=== PATIENT | female | born 1990 | race Two or more races ===

== ENCOUNTER 2017-06-13 16:20 | Emergency (ER) | payer OTHER ==
[2017-06-13 16:44] VITALS: BP 122/58; PULSE 70; TEMP 97.5; BMI 32.9
[2017-06-13] MEDS ORDERED: IBUPROFEN 600 MG TABLET (FP) PO ONE ×2 (17:34→17:44)
[2017-06-13] MEDS ORDERED: CYCLOBENZAPRINE HCL 10 MG TABLET (FP) PO ONE (17:34)
[2017-06-13] MEDS ORDERED: CYCLOBENZAPRINE HCL 10 MG TABLET (FP) ONE (17:44)
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
== END 2017-06-13 17:53 | disposition home or self-care (01) ==
LOC: JERFT 16:20
DX: S20.219A Contusion of unspecified front wall of thorax, initial encounter (principal); V43.52XA Car driver injured in collision with other type car in traffic accident, initial encounter; Y92.414 Local residential or business street as the place of occurrence of the external cause; Y93.89 Activity, other specified; Y99.8 Other external cause status; R73.03 Prediabetes
CPT/HCPCS: 99281-25

== ENCOUNTER 2017-09-04 11:59 | Emergency (ER) | payer OTHER ==
[2017-09-04 12:06] VITALS: BP 125/67; PULSE 91; TEMP 98; BMI 32.9
--- NOTE | 2017-09-04 12:37 | PDOC ---
History of Present Illness - General Chief Complaint: Sore Throat Stated Complaint: SORE THROAT (10 WKS ) Time Seen by Provider: 09/04/17 12:30 History Source: Patient Exam Limitations: No Limitations - History of Present Illness Initial Comments: 09/04/17 12:44 Patient came for evaluation for worsened runny nose, moist cough, sore throat pain for the past 24 hours. Denies fever, denies purulent drainage from nose, denies any phlegm production with cough. is 10 weeks with uncomplicated and is uncertain as to what she can take to make herself feel better. received flu shot one week ago and feels may be related 09/04/17 12:45 Associated Symptoms: reports: denies symptoms, cough Past History - Travel Traveled outside of the country in the last 30 days: No Close contact w/someone who was outside of country & ill: No - Past Medical History Allergies/Adverse Reactions: Allergies Allergy/AdvReac Type Severity Reaction Status Date / Time No Known Drug Allergies Allergy Verified 06/13/17 16:44 acetaminophen [From Tylenol] AdvReac Verified 09/04/17 12:06 Home Medications: Ambulatory Orders No Home Medications 0 dose .ROUTE UTDICT 12/15/11 Cyclobenzaprine HCl [Flexeril -] 5 mg PO TID PRN #12 tablet 06/13/17 Ibuprofen [Motrin -] 600 mg PO TID PRN #21 tablet 06/13/17 Anemia: Yes Asthma: No Cancer: No Cardiac Disorders: Yes (heart murmur) CVA: No COPD: No CHF: No Dementia: No Diabetes: Yes ("pre") GI Disorders: No Disorders: No HTN: No Hypercholesterolemia: No Liver Disease: No Seizures: No Thyroid Disease: No - Surgical History Abdominal Surgery: No Appendectomy: No Cardiac Surgery: No Cholecystectomy: No Lung Surgery: No Neurologic Surgery: No Orthopedic Surgery: No - Suicide/Smoking/Psychosocial Hx Smoking History: Never smoked Have you smoked in the past 12 months: No Hx Alcohol Use: Yes (occasional) Drug/Substance Use Hx: No Substance Use Type: Alcohol Hx Substance Use Treatment: No Review of Systems - Review of Systems Able to Perform ROS?: Yes Is the patient limited Fijian proficient: Yes Constitutional: Yes: Symptoms Reported, See HPI, Loss of Appetite, Malaise. No : Chills, Fever HEENTM: Yes: Symptoms Reported, See HPI, Nose Congestion, Throat Pain Respiratory: Yes: Symptoms reported, See HPI, Cough. No: Wheezing : No: Symptoms Reported Musculoskeletal: No: Symptoms Reported Integumentary: No: Symptoms Reported All Other Systems: Reviewed and Negative *Physical Exam - Vital Signs Last Vital Signs Temp Pulse Resp BP Pulse Ox 98 F 91 H 18 125/67 99 09/04/17 12:03 09/04/17 12:03 09/04/17 12:03 09/04/17 12:03 09/04/17 12:03 - Physical Exam General Appearance: Yes: Nourished, Appropriately Dressed, Apparent Distress, Mild Distress HEENT: positive: BIENVENIDO (no exudate), TMs Normal (congested but landmarks easily visualized), Rhinorrhea (clear drainage), Sinus Tenderness. negative: Pharyngeal Erythema Neck: positive: Supple, Lymphadenopathy (R), Lymphadenopathy (L). negative: Tender Respiratory/Chest: positive: Lungs Clear, Normal Breath Sounds (course) Cardiovascular: positive: Regular Rhythm Gastrointestinal/Abdominal: positive: Soft. negative: Tender Extremity: positive: Normal Capillary Refill, Normal Inspection, Normal Range of Motion Integumentary: positive: Dry, Warm, Pale Neurologic: positive: appliquer zigzag II-XII NML intact, Fully Oriented, Alert, Normal Mood/ Affect, Normal Response, Motor Strength 5/5 *DC/Admit/Observation/Transfer Diagnosis at time of Disposition: URI, acute - Discharge Dispostion Disposition: HOME Condition at time of disposition: Stable Admit: No - Referrals Referrals: Saleem Zapata MD [Primary Care Provider] - - Patient Instructions Printed Discharge Instructions: DI for Viral Upper Respiratory Infection -- Adult Additional Instructions: Rest, drink lots of fluids: Teas, water, soups, Pedialyte Saltwater gargles Steamy showers/seem to face break up mucus Avoid contact with others until fevers and cough resolved Lots of handwashing and good hygiene Tylenol for fever and pain Followup with private physician in one to 2 days as needed Return to emergency department for worsened symptoms, fevers, dehydration - Post Discharge Activity Forms/Work/School Notes: Back to Work
== END 2017-09-04 12:47 | disposition home or self-care (01) ==
LOC: JERFT 11:59
DX: O99.89 Other specified diseases and conditions complicating pregnancy, childbirth and the puerperium (principal); J06.9 Acute upper respiratory infection, unspecified; B97.89 Other viral agents as the cause of diseases classified elsewhere; Z3A.10 10 weeks gestation of pregnancy; R73.03 Prediabetes
CPT/HCPCS: 99281-25

== ENCOUNTER 2018-02-07 13:05 | Emergency (ER) | payer OTHER ==
[2018-02-07] MEDS ORDERED: SODIUM CHLORIDE 1,000 ML IV STA (16:13)
[2018-02-07] MEDS ORDERED: METOCLOPRAMIDE HCL INJECTION 10 MG/2 ML VIAL IVPUSH ONE (16:13)
[2018-02-07] MEDS ORDERED: ACETAMINOPHEN 1000 MG/100 ML VIAL (NON FORMULARY) IVPB ONE (16:19)
--- NOTE | 2018-02-07 16:20 | PDOC ---
History of Present Illness - General Chief Complaint: Headache Stated Complaint: HEADACHE () Time Seen by Provider: 02/07/18 16:01 History Source: Patient Exam Limitations: No Limitations - History of Present Illness Initial Comments: 02/07/18 17:08 Patient is a 27-year-old female currently 35 weeks who presents to the emergency department today for worsening headache over the past 4 days. Patient states she usually gets headaches however they do not generally last this long. She states that the pain started on the right side of her head and became more intense gradually over the past 4 days. Denies nausea, vomiting, worsening headache with positional changes. She states she last took Tylenol on Wednesday. Denies fevers, neck pain, chest pain, shortness of breath, difficulty breathing , vomiting, vaginal bleeding or spotting, edema. Past History - Travel Traveled outside of the country in the last 30 days: No Close contact w/someone who was outside of country & ill: No - Past Medical History Allergies/Adverse Reactions: Allergies Allergy/AdvReac Type Severity Reaction Status Date / Time No Known Drug Allergies Allergy Verified 02/07/18 13:21 Home Medications: Ambulatory Orders NK [No Known Home Medication] 09/04/17 Anemia: Yes Asthma: No Cancer: No Cardiac Disorders: Yes (heart murmur) CVA: No COPD: No CHF: No Dementia: No Diabetes: Yes ("pre") GI Disorders: No Disorders: No HTN: No Hypercholesterolemia: No Liver Disease: No Seizures: No Thyroid Disease: No - Surgical History Abdominal Surgery: No Appendectomy: No Cardiac Surgery: No Cholecystectomy: No Lung Surgery: No Neurologic Surgery: No Orthopedic Surgery: No - Suicide/Smoking/Psychosocial Hx Smoking History: Former smoker Have you smoked in the past 12 months: No If you are a former smoker, when did you quit?: 10 years ago Information on smoking cessation initiated: No Hx Alcohol Use: Yes (occasional) Drug/Substance Use Hx: No Substance Use Type: Alcohol Hx Substance Use Treatment: No Review of Systems - Review of Systems Able to Perform ROS?: Yes Comments:: 02/07/18 16:19 CONSTITUTIONAL: Absent: fever, chills, diaphoresis, generalized weakness, malaise, loss of appetite HEENT: Absent: rhinorrhea, nasal congestion, throat pain, throat swelling, difficulty swallowing, mouth swelling, ear pain, eye pain, visual Changes CARDIOVASCULAR: Absent: chest pain, loss of consciousness, palpitations, irregular heart rate, peripheral edema RESPIRATORY: Absent: cough, shortness of breath, dyspnea with exertion, orthopnea, wheezing, stridor, hemoptysis GASTROINTESTINAL: Absent: abdominal pain, abdominal distension, nausea, vomiting, diarrhea, constipation, melena, hematochezia GENITOURINARY: Absent: dysuria, frequency, urgency, hesitancy, hematuria, flank pain, genital pain MUSCULOSKELETAL: Absent: myalgia, arthralgia, joint swelling SKIN: Absent: rash, itching, pallor HEMATOLOGIC/IMMUNOLOGIC: Absent: easy bleeding, easy bruising, lymphadenopathy, frequent infections ENDOCRINE: Absent: unexplained weight gain, unexplained weight loss, heat intolerance, cold intolerance NEUROLOGIC: Present: headache Absent: focal weakness or paresthesias, dizziness, unsteady gait, seizure, mental status changes, bladder or bowel incontinence PSYCHIATRIC: Absent: anxiety, depression, suicidal or homicidal ideation, hallucinations. Is the patient limited Armenian proficient: No *Physical Exam - Vital Signs Last Vital Signs Temp Pulse Resp BP Pulse Ox 98.7 F 84 18 132/57 L 99 02/07/18 13:21 02/07/18 13:21 02/07/18 13:21 02/07/18 13:21 02/07/18 13:21 - Physical Exam Comments: 02/07/18 16:20 GENERAL: Well developed, well nourished. Awake and alert. No acute distress. HEENT: Normocephalic, atraumatic. PERRLA, EOMI. No conjunctival pallor. Sclera are non- icteric. Moist mucous membranes. Oropharynx is clear. NECK: Supple. Full ROM. No JVD. Carotid pulses 2+ and symmetric, without bruits. No thyromegaly. No lymphadenopathy. CARDIOVASCULAR: Regular rate and rhythm. No murmurs, rubs, or gallops. Distal pulses are 2+ and symmetric. PULMONARY: No evidence of respiratory distress. Lungs clear to auscultation bilaterally. No wheezing, rales or rhonchi. ABDOMINAL: Soft. Non-tender. Non-distended. No rebound or guarding. No organomegaly. Normoactive bowel sounds. MUSCULOSKELETAL Normal range of motion at all joints. No bony deformities or tenderness. No CVA tenderness. EXTREMITIES: No cyanosis. No clubbing. No edema. No calf tenderness. SKIN: Warm and dry. Normal capillary refill. No rashes. No jaundice. NEUROLOGICAL: Alert, awake, appropriate. Cranial nerves 2-12 intact. No deficits to light touch and temperature in face, upper extremities and lower extremities. No motor deficits in the in face, upper extremities and lower extremities. Normoreflexic in the upper and lower extremities. Normal speech. Toes are down- going bilaterally. Gait is normal without ataxia. PSYCHIATRIC: Cooperative. Good eye contact. Appropriate mood and affect. Medical Decision Making - Medical Decision Making 02/07/18 19:09 Patient is a 27-year-old female currently 35 weeks who presents to the emergency department today for worsening headache over the past 4 days. -Neuro exam is normal at this time -Most likely her typical headaches -IV reglan and benadryl ordered -Labs ordered, CBC, CMP, Urine. -Labs delayed because patients stated she didn't want her labs until she finished eating -Sign out given to Tammy Heart. Pending labs and meds. Re-evaluate *DC/Admit/Observation/Transfer - Referrals Referrals: Shun Pate MD [Primary Care Provider] - - Patient Instructions - Post Discharge Activity
[2018-02-07] MEDS ORDERED: METOCLOPRAMIDE HCL INJECTION 10 MG/2 ML VIAL ONE (17:54)
--- NOTE | 2018-02-07 19:17 | PDOC ---
*Physical Exam - Vital Signs Last Vital Signs Temp Pulse Resp BP Pulse Ox 98.7 F 84 18 132/57 L 99 02/07/18 13:21 02/07/18 13:21 02/07/18 13:21 02/07/18 13:21 02/07/18 13:21 - Physical Exam General Appearance: Yes: Appropriately Dressed Respiratory/Chest: positive: Lungs Clear, Normal Breath Sounds Gastrointestinal/Abdominal: positive: Normal Bowel Sounds, Soft Extremity: positive: Normal Capillary Refill, Normal Inspection, Normal Range of Motion, Pedal Edema (b/l pitting) Integumentary: positive: Normal Color, Dry, Warm Neurologic: positive: Fully Oriented, Alert, Normal Mood/Affect ED Treatment Course - LABORATORY CBC & Chemistry Diagram: 02/07/18 19:20 02/07/18 16:13 Medical Decision Making - Medical Decision Making 02/07/18 19:55 27 year old female 35 weeks c/o headache. has b/l pedal edema. patient is now getting IVF. will r/o HELLP syndrome. labs pending. patient denies abdominal pain 02/07/18 20:51 Labs WNL. will d/c to L&D for monitoring. *DC/Admit/Observation/Transfer Diagnosis at time of Disposition: Head ache Qualifiers: Headache type: tension-type Headache chronicity pattern: acute headache Intractability: not intractable Qualified Code(s): G44.209 - Tension-type headache, unspecified, not intractable - Discharge Dispostion Disposition: HOME - Referrals Referrals: Shun Pate MD [Primary Care Provider] - Call tomorrow - Patient Instructions Printed Discharge Instructions: Tension Headache Additional Instructions: drink plenty of fluids Follow up with your external relations manager as soon as possible - Post Discharge Activity
[2018-02-07 19:28] LABS: BASO % 0.4 % (0-2.0); HEMATOCRIT 33.8 % (32.4-45.2); HEMOGLOBIN 11.2 GM/dL (10.7-15.3); LYMPH % 16.6 % (8-40); MEAN CELL VOLUME 81.7 fl (80-96); PLATELET COUNT 186 K/MM3 (134-434); RBC 4.14 M/mm3 (3.60-5.2); RDW 13.5 % (11.6-15.6); WHITE BLOOD COUNT 6.5 K/mm3 (4.0-10.0)
[2018-02-07 20:03] LABS: ALBUMIN 2.1 g/dl (3.4-5.0); ALK PHOS 199 U/L (45-117); ANION GAP 8 MMOL/L (8-16); BILIRUBIN,TOTAL 0.2 mg/dL (0.2-1); BLOOD UREA NITROGEN 11 mg/dL (7-18); CALCIUM 8.6 mg/dL (8.5-10.1); CHLORIDE 108 mmol/L (98-107); CO2 24 mmol/L (21-32); CREATININE 0.7 mg/dL (0.55-1.3); GLUCOSE,RANDOM 161 mg/dL (74-106); SGOT/AST 12 U/L (15-37); SGPT/ALT 28 U/L (13-61); SODIUM 140 mmol/L (136-145); TOT PROT 5.5 g/dl (6.4-8.2)
[2018-02-07 20:08] LABS: URIC ACID 4.8 mg/dL (2.6-7.2)
[2018-02-07] MEDS ORDERED: ACETAMINOPHEN INJECTION 100 ML IVPB ONE (20:14)
[2018-02-07 21:17] LABS: URINE APPEARANCE CLEAR; URINE BILIRUBIN NEGATIVE (<2.0 mg/dL); URINE COLOR YELLOW; URINE GLUCOSE (UA) 1+ (NEGATIVE); URINE KETONE NEGATIVE (NEGATIVE); URINE LEUK ESTERASE NEGATIVE (NEGATIVE); URINE NITRITE NEGATIVE (NEGATIVE); URINE PROTEIN NEGATIVE (NEGATIVE); URINE UROBILINOGEN NEGATIVE mg/dL (0.2-1.0)
[2018-02-07 23:06] VITALS: TEMP 98.8
[2018-02-07 23:07] VITALS: BP 130/58
[2018-02-07 23:31] VITALS: PULSE 79
== END 2018-02-07 22:50 | disposition home or self-care (01) ==
LOC: JER 13:05
PROC: 3E033NZ Introduction of Analgesics, Hypnotics, Sedatives into Peripheral Vein, Percutaneous Approach (ICD-10-PCS; principal; 2018-02-07)
PROC: 3E033GC Introduction of Other Therapeutic Substance into Peripheral Vein, Percutaneous Approach (ICD-10-PCS; 2018-02-07)
PROC: 3E0337Z Introduction of Electrolytic and Water Balance Substance into Peripheral Vein, Percutaneous Approach (ICD-10-PCS; 2018-02-07)
DX: O26.893 Other specified pregnancy related conditions, third trimester (principal); Z3A.35 35 weeks gestation of pregnancy; G44.209 Tension-type headache, unspecified, not intractable
CPT/HCPCS: 36415; 80053; 81003; 82977; 83010; 84450; 84460; 84550; 85025; 85044; 96361; 96374; 96375; 99282-25; J0131; J7030

== ENCOUNTER 2018-03-08 06:55 | Inpatient (IN) | payer OTHER ==
--- NOTE | 2018-03-08 07:28 | PDOC ---
History of Present Illness - General Chief Complaint: Headache Stated Complaint: S.O.B. Time Seen by Provider: 03/08/18 07:28 - History of Present Illness Initial Comments: 03/08/18 08:21 Ms. Rodriguez is a 27 yo female w/ significant pmh anemia and recent induction of labor at 38 weeks 03/04/2018 for pre-eclampsia. Patient reports after discharge she began having shortness of breath with headache and is also having chest pain on deep inspiration at this time. Patient had full pre-katerina care and delivered at this hospital; is proscribed labetalol 200mg PO BID however has been unable to start taking it at this time. Baby is doing well inpatient in this hospital as well. The patient denies chest pain, shortness of breath, headache and dizziness. Denies fever, chills, nausea, vomit, diarrhea and constipation. Denies dysuria, frequency, urgency and hematuria. Allergies: NKDA Past History - Past Medical History Allergies/Adverse Reactions: Allergies Allergy/AdvReac Type Severity Reaction Status Date / Time No Known Drug Allergies Allergy Verified 03/08/18 07:11 Home Medications: Ambulatory Orders Tablet 1 tab PO DAILY 03/02/18 Labetalol HCl [Normodyne -] 200 mg PO BID #60 tablet 03/06/18 Anemia: Yes Asthma: No Cancer: No Cardiac Disorders: No CVA: No COPD: No CHF: No Dementia: No Diabetes: No GI Disorders: No Disorders: No HTN: No Hypercholesterolemia: No Liver Disease: No Seizures: No Thyroid Disease: No - Surgical History Abdominal Surgery: No Appendectomy: No Cardiac Surgery: No Cholecystectomy: No Lung Surgery: No Neurologic Surgery: No Orthopedic Surgery: No - Suicide/Smoking/Psychosocial Hx Smoking History: Never smoked Have you smoked in the past 12 months: No If you are a former smoker, when did you quit?: 10 years ago Hx Alcohol Use: No Drug/Substance Use Hx: No Substance Use Type: Alcohol Hx Substance Use Treatment: No Review of Systems - Review of Systems Comments:: 03/08/18 08:26 GENERAL/CONSTITUTIONAL: No fever or chills. No weakness. HEAD, EYES, EARS, NOSE AND THROAT: No change in vision. No ear pain or discharge. No sore throat. CARDIOVASCULAR: +Chest pain and SOB as described. RESPIRATORY: No cough, wheezing, or hemoptysis. GASTROINTESTINAL: No nausea, vomiting, diarrhea or constipation. GENITOURINARY: No dysuria, frequency, or change in urination. MUSCULOSKELETAL: No joint or muscle swelling or pain. No neck or back pain. SKIN: No rash NEUROLOGIC:+Current headache, no vertigo, loss of consciousness, or change in strength/sensation. ENDOCRINE: No increased thirst. No abnormal weight change HEMATOLOGIC/LYMPHATIC: No anemia, easy bleeding, or history of blood clots. ALLERGIC/IMMUNOLOGIC: No hives or skin allergy. *Physical Exam - Vital Signs Last Vital Signs Temp Pulse Resp BP Pulse Ox 98.2 F 81 18 159/78 100 03/08/18 07:11 03/08/18 07:11 03/08/18 07:11 03/08/18 07:11 03/08/18 07:11 - Physical Exam Comments: 03/08/18 08:27 GENERAL: Awake, alert, and fully oriented, in no acute distress HEAD: No signs of trauma, normocephalic, atraumatic EYES: PERRLA, EOMI, sclera anicteric, conjunctiva clear ENT: Auricles normal inspection, hearing grossly normal, nares patent, oropharynx clear without exudates. Moist mucosa NECK: Normal ROM, supple, no lymphadenopathy, JVD, or masses LUNGS: No distress, speaks full sentences, clear to auscultation bilaterally HEART: Regular rate and rhythm, normal S1 and S2, no murmurs, rubs or gallops, peripheral pulses normal and equal bilaterally. ABDOMEN: Soft, nontender, normoactive bowel sounds. No guarding, no rebound. No masses EXTREMITIES: Normal inspection, Normal range of motion, no edema. No clubbing or cyanosis. NEUROLOGICAL: Cranial nerves II through XII grossly intact. Normal speech, normal gait, no focal sensorimotor deficits SKIN: Warm, Dry, normal turgor, no rashes or lesions noted. ED Treatment Course - LABORATORY CBC & Chemistry Diagram: 03/08/18 07:52 03/08/18 07:52 Medical Decision Making - Medical Decision Making 03/08/18 10:55 Ms. Rodriguez is a 27 yo female w/ pmh as described who presents for evaluation of symptoms concerning for pre-eclamsia. Workup started with EKG/CXR/labs as below and bedside US for DVT (negative). Pressures improved with labetalol 5 iv and 200 po. Transferring upstairs for L&D evaluation/monitoring. Laboratory Results - last 24 hr 03/08/18 03/08/18 03/08/18 07:52 07:52 07:52 WBC 6.9 RBC 3.78 Hgb 9.9 L Hct 31.4 L MCV 83.2 MCH 26.4 MCHC 31.7 L RDW 14.5 Plt Count 196 D MPV 9.7 Absolute Neuts (auto) 5.1 Neutrophils % 74.3 Lymphocytes % 16.1 D Monocytes % 7.2 Eosinophils % 2.3 D Basophils % 0.1 Nucleated RBC % 0 PT with INR 10.30 INR 0.87 PTT (Actin FS) 25.8 Sodium 142 Potassium 4.6 Chloride 109 H Carbon Dioxide 24 Anion Gap 9 BUN 21 H Creatinine 0.8 Creat Clearance w eGFR > 60 Random Glucose 88 Calcium 8.0 L Total Bilirubin 0.2 AST 31 ALT 52 Alkaline Phosphatase 158 H Creatine Kinase 117 Troponin I < 0.02 Total Protein 5.7 L Albumin 2.3 L Beta HCG, Quant 1496.7 Blood Type Antibody Screen 03/08/18 07:52 WBC RBC Hgb Hct MCV MCH MCHC RDW Plt Count MPV Absolute Neuts (auto) Neutrophils % Lymphocytes % Monocytes % Eosinophils % Basophils % Nucleated RBC % PT with INR INR PTT (Actin FS) Sodium Potassium Chloride Carbon Dioxide Anion Gap BUN Creatinine Creat Clearance w eGFR Random Glucose Calcium Total Bilirubin AST ALT Alkaline Phosphatase Creatine Kinase Troponin I Total Protein Albumin Beta HCG, Quant Blood Type B POSITIVE Antibody Screen Negative *DC/Admit/Observation/Transfer Diagnosis at time of Disposition: Pre-eclampsia Qualifiers: Trimester: unspecified trimester Qualified Code(s): O14.90 - Unspecified pre- eclampsia, unspecified trimester - Discharge Dispostion Disposition: HOME - Referrals Referrals: Shun Pate MD [Primary Care Provider] - - Patient Instructions - Post Discharge Activity
[2018-03-08] MEDS ORDERED: ACETAMINOPHEN 1000 MG/100 ML VIAL (NON FORMULARY) IVPB ONE (07:45)
[2018-03-08] MEDS ORDERED: LABETALOL HCL 5 MG/1 ML (100MG/20 ML VIAL) IVPUSH ONE ×2 (07:51→07:59)
[2018-03-08] MEDS ORDERED: LABETALOL HCL 200 MG TABLET (FP) PO ONE (07:51)
[2018-03-08] MEDS ORDERED: LABETALOL HCL 100 MG TABLET (FP) ONE (08:05)
[2018-03-08] MEDS ORDERED: ACETAMINOPHEN INJECTION 100 ML IVPB ONE (08:05)
[2018-03-08] MEDS ORDERED: LABETALOL HCL 5 MG/1 ML (200MG/40ML VIAL) IVPB ONE ×2 (08:05→08:06)
[2018-03-08 08:20] LABS: BASO % 0.1 % (0-2.0); EOS % 2.3 % (0-4.5); HEMATOCRIT 31.4 % (32.4-45.2); HEMOGLOBIN 9.9 GM/dL (10.7-15.3); LYMPH % 16.1 % (8-40); MCH 26.4 pg (25.7-33.7); MCHC 31.7 g/dl (32.0-36.0); MEAN CELL VOLUME 83.2 fl (80-96); MEAN PLT VOLUME 9.7 fl (7.5-11.1); MONO % 7.2 % (3.8-10.2); NEUT % 74.3 % (42.8-82.8); PLATELET COUNT 196 K/MM3 (134-434); RBC 3.78 M/mm3 (3.60-5.2); RDW 14.5 % (11.6-15.6); WHITE BLOOD COUNT 6.9 K/mm3 (4.0-10.0)
--- NOTE | 2018-03-08 08:50 | PDOC ---
Attending Attestation - Resident Resident Name: Jamil Navarrete - ED Attending Attestation I have performed the following: I have examined & evaluated the patient, The case was reviewed & discussed with the resident, I agree w/resident's findings & plan - HPI HPI: 03/08/18 08:46 27-year-old female status post induced vaginal delivery 4 days ago secondary to preeclampsia presents now with headache and shortness of breath in the setting of noncompliance with her labetalol since discharge. No syncope, no vision changes or speech changes, reports pleuritic chest discomfort with dry cough, no prolonged chest pressure or exertional component or orthopnea. Has had bilateral leg swelling over the third trimester. - Physicial Exam PE: 03/08/18 08:47 Blood pressure 159/78, heart rate normal, O2 sat 100% on room air Alert, lying comfortably in stretcher speaking full sentences No JVD Heart is regular, no murmurs Lungs are clear with symmetric chest rise 2+ bilateral leg swelling, no calf tenderness Baseline right gaze palsy - Medical Decision Making 03/08/18 08:48 27-year-old female 4 days , complicated by preeclampsia presents with headache and shortness of breath since last night. Symptoms could be in the setting of noncompliance with her medications and elevated blood pressure/ preeclampsia, relatively lower clinical suspicion for PE, unlikely ACS. Check labs dose BP meds in ED Chest x-ray, EKG Leg Dopplers Will transfer to labor and delivery for further evaluation and management 03/08/18 10:21 trop negative, cxr wnl, stable Hgb bp remains elevated, received labetalol PO. will check doppler then proceed to L+D 03/08/18 10:55 bp improved to 155 systolic, bedside doppler negative for DVT. proceed with L+D transfer, signout given . Heart Score/ECG Review #1 ECG reviewed & interpreted by me at: 07:33 General ECG Interpretation: Sinus Rhythm, Normal Rate (69), Normal Intervals ( qtc 385), No acute ischemic changes
[2018-03-08 08:51] LABS: INR 0.87 (0.83-1.09); PROTHROMBIN TIME (PATIENT) 10.3 SEC (9.7-13.0)
[2018-03-08 08:54] LABS: ACTIVATED PTT 25.8 SECONDS (25.2-36.5)
[2018-03-08 09:13] LABS: ALBUMIN 2.3 g/dl (3.4-5.0); ALK PHOS 158 U/L (45-117); ANION GAP 9 MMOL/L (8-16); BILIRUBIN,TOTAL 0.2 mg/dL (0.2-1); BLOOD UREA NITROGEN 21 mg/dL (7-18); CHLORIDE 109 mmol/L (98-107); CO2 24 mmol/L (21-32); CREATININE 0.8 mg/dL (0.55-1.3); GLUCOSE,RANDOM 88 mg/dL (74-106); POTASSIUM 4.6 mmol/L (3.5-5.1); SGOT/AST 31 U/L (15-37); SGPT/ALT 52 U/L (13-61); SODIUM 142 mmol/L (136-145); TOT PROT 5.7 g/dl (6.4-8.2)
[2018-03-08 10:31] LABS: URINE APPEARANCE CLEAR; URINE BILIRUBIN NEGATIVE (<2.0 mg/dL); URINE COLOR LTYELLOW; URINE GLUCOSE (UA) NEGATIVE (NEGATIVE); URINE KETONE NEGATIVE (NEGATIVE); URINE LEUK ESTERASE 2+ (NEGATIVE); URINE NITRITE NEGATIVE (NEGATIVE); URINE PROTEIN 1+ (NEGATIVE); URINE UROBILINOGEN NEGATIVE mg/dL (0.2-1.0)
[2018-03-08 11:18] LABS: EPI CELLS RARE /HPF (FEW); YEAST RARE
[2018-03-08 11:44] LABS: ANISOCYTOSIS 1+; MACROCYTOSIS 0; PLATELET ESTIMATE NORMAL
[2018-03-08] MEDS ORDERED: NIFEdipine E.R. 30 MG TABLET (FP) PO ONE (12:30)
--- NOTE | 2018-03-08 12:49 | EKG ---
Test Reason : Blood Pressure : / mmHG Vent. Rate : 069 BPM Atrial Rate : 069 BPM P-R Int : 182 ms QRS Dur : 068 ms QT Int : 360 ms P-R-T Axes : -04 066 037 degrees QTc Int : 385 ms NORMAL SINUS RHYTHM SEPTAL INFARCT (CITED ON OR BEFORE 23-DEC-2011) ABNORMAL ECG Confirmed by MD ERON, ANIA ([id number]) on 03/08/2018 12:48:55 PM Referred By: Confirmed By:ANIA LITTLEJOHN MD
--- NOTE | 2018-03-08 13:31 | HP ---
Past Medical History - Primary Care Physician PCP:: Shun Pate - Admission Chief Complaint: hypertension , , r/o preeclampsia History of Present Illness: 27 yo f with hx of preeclampsis ,had induction of labor on 02/1718 , vaginal delivery 03/04/18 . discharge on 03/06/18 .asymptomatic on Labetalol .patient states she did not fill her rx for labetalol . now admitted with BP 159/78. 181/ 108 . 172/93, and c/o chest pain and difficulty breathing, normal oxygen saturation,was txed with 5 mg iv Labetalol and 200 mg po, repeat BP 155/78, reffered to L&D , here in L&D has no headache, blurred vision,chest pain and difficulty breathing has resolved .LFT, platelets normal, urine 1+ protein , no vaginal bleeding, no calf pain History Source: Patient Limitations to Obtaining History: No Limitations - Past Medical History ...: 1 ...Para: 1 Additional OB History: shoulder dystocia , baby still in the hospital under observation Heme/Onc: Yes: Anemia - Past Surgical History Hx Myomectomy: No Hx Transabdominal Cerclage: No - Smoking History Smoking history: Never smoked Have you smoked in the past 12 months: No If you are a former smoker, when did you quit?: 10 years ago - Alcohol/Substance Use Hx Alcohol Use: No - Social History History of Recent Travel: No Home Medications - Allergies Allergies/Adverse Reactions: Allergies Allergy/AdvReac Type Severity Reaction Status Date / Time No Known Drug Allergies Allergy Verified 03/08/18 07:11 - Home Medications Home Medications: Ambulatory Orders Tablet 1 tab PO DAILY 03/02/18 Labetalol HCl [Normodyne -] 200 mg PO BID #60 tablet 03/06/18 Review of Systems - Review of Systems Constitutional: reports: No Symptoms Eyes: reports: No Symptoms HENT: reports: No Symptoms Neck: reports: No Symptoms Cardiovascular: reports: Shortness of Breath Respiratory: reports: No Symptoms Gastrointestinal: reports: No Symptoms Genitourinary: reports: No Symptoms Breasts: reports: Other (breast feeding) Endocrine: reports: No Symptoms Hematology/Lymphatic: reports: No Symptoms Psychiatric: reports: No Symptoms Physical Exam-RISK CONSULTANT Vital Signs: Vital Signs Temperature 97.8 F 03/08/18 11:25 Pulse Rate 62 03/08/18 12:15 Respiratory Rate 18 03/08/18 12:15 Blood Pressure 158/77 03/08/18 12:15 O2 Sat by Pulse Oximetry (%) 99 03/08/18 12:15 Constitutional: Yes: No Distress, Obese Eyes: Yes: WNL HENT: Yes: WNL Neck: Yes: WNL Cardiovascular: Yes: Other (normal as per ER MD) Respiratory: Yes: WNL (as per ER MD) Gastrointestinal: Yes: WNL (no RUQ tenderness) Renal/: Yes: WNL External Genitalia: Yes: Normal Internal Exam Deferred: Yes ....Post : Yes: Uterus firm, Uterus non-tender, Slight lochia rubra Edema: Yes Edema: LLE: 1+, RLE: 1+ Integumentary: Yes: WNL Neurological: Yes: WNL ...Motor Strength: WNL Psychiatric: Yes: WNL Labs: CBC, BMP 03/08/18 07:52 03/08/18 07:52 Problem List - Problem (1) Pre-eclampsia Code(s): O14.90 - UNSPECIFIED PRE-ECLAMPSIA, UNSPECIFIED TRIMESTER Qualifiers: Trimester: unspecified trimester Qualified Code(s): O14.90 - Unspecified pre-eclampsia, unspecified trimester (2) induced hypertension Code(s): O13.9 - GESTATIONAL HTN W/O SIGNIFICANT PROTEINURIA, UNSP TRIMESTER Qualifiers: Trimester: unspecified trimester Qualified Code(s): O13.9 - Gestational [ -induced] hypertension without significant proteinuria, unspecified trimester (3) hypertension Code(s): O16.5 - UNSPECIFIED MATERNAL HYPERTENSION, COMP THE PUERPERIUM Assessment/Plan admit, monitor BP BP stable after txed with Labetalol and procardia, BP coming down , no evidence of HELLP syndrome,, 1+ protein in urine , will monitor bp if cont. to be high may need MGSO4 medical consult Dr Oliveira
[2018-03-08 14:06] VITALS: BMI 40.9
[2018-03-08] MEDS ORDERED: ACETAMINOPHEN 325 MG TABLET (FP) ONE ×3 (14:58→23:39)
[2018-03-08] MEDS ORDERED: ACETAMINOPHEN 325 MG TABLET (FP) PO ONE (15:15)
[2018-03-08] MEDS ORDERED: LABETALOL HCL 200 MG TABLET (FP) PO PRN (15:47)
[2018-03-08] MEDS ORDERED: LABETALOL HCL 200 MG TABLET (FP) ONE (15:49)
--- NOTE | 2018-03-08 15:50 | CONSULT ---
Consult - text type - Consultation Consultation Note: Renal Consult for hypertension This is a 27 year old AA woman s/p recent vaginal dilivery that presented from home with complaints of DODGE and found to have elevated BP. Pt was prescribed Labetalol on hospital discharge but did not take it at home. Denies any vision changes but does have frontal DODGE that is improved slightly now. No peripheral weakness noted. Had some chest discomfort while in the ER but is now resolved. No fever or chills. Was using NSAIDs at home for abd pain. PMHx: None Social hx: no T/A/D Family Hx: Mother HTN, Father DM ROS: as per HPI Home Medications Medication Instructions Recorded Tablet 1 tab PO DAILY 03/02/18 Labetalol HCl [Normodyne -] 200 mg PO BID #60 tablet 03/06/18 Vital Signs Temperature 97.8 F 03/08/18 14:00 Pulse Rate 65 03/08/18 15:00 Respiratory Rate 18 03/08/18 15:00 Blood Pressure 170/78 03/08/18 15:00 O2 Sat by Pulse Oximetry (%) 99 03/08/18 12:15 NAD awake and alert RRR, No M/R CTA, no rales or wheeze soft NT/ND No Le edema, clubbing or cyanosis CBC, BMP 03/08/18 07:52 03/08/18 07:52 Laboratory Tests 03/08/18 03/08/18 03/08/18 07:52 07:52 09:58 MCV 83.2 AST 31 ALT 52 Alkaline Phosphatase 158 H Urine Protein 1+ H D Urine Blood 3+ H Ur Leukocyte Esterase 2+ H Current Medications Labetalol HCl (Normodyne -) 200 mg PO Q6H PRN PRN Reason: HYPERTENSION Nifedipine (Procardia Xl -) 30 mg PO DAILY BUDDY 27 year old AA woman s/p recent vaginal dilivery that presented from home with complaints of DODGE and found to have elevated BP. # Hypertension secondary to preeclampsia At this time would continue oral antihypertensives Continue Nifedpine 30mg Daily and Labetalol 200mg PRN for SBP > 160 or DBP > 100 Low salt diet pain control with Tylenol, avoid nsaids Monitor BP closely if DODGE gets worse can consider imaging studies ALK Phos elevated, trend daily, AST/ALT WNL. No evidence of HELLP syndrome Thank yo u will follow López Oliveira DO
[2018-03-08] MEDS: ACETAMINOPHEN 325 MG TABLET (FP) PO PRN ×2 (19:35→23:55)
[2018-03-08] MEDS ORDERED: oxyCODONE HCL 5 MG TABLET PO PRN (20:54)
[2018-03-08] MEDS ORDERED: MAGNESIUM 4GM/H20 - 4 GM/100 ML IVPB IVPB SCH (21:00)
[2018-03-08] MEDS ORDERED: DEXTROSE 5%-LACTATED RINGERS 1,000 ML IV SCH ×2 (21:00→22:15)
[2018-03-08] MEDS ORDERED: MAGNESIUM 4GM/H20 - 4 GM/100 ML IVPB IVPB ONE (21:05)
--- NOTE | 2018-03-08 21:30 | PN ---
Progress Note (SOAP) - Subjective Chief Complaint: Pt is c/o headache that she describes as 02/23. The headache began on Wednesday on and off. The pt took Tylenol a few times and the headache resolved but then returned. The headache continued since 4am today and has become worse She had chest pain earlier but that completely resolved. She also has episodes of nausea on and off w/o vomiting. The pt denies photophobia or any muscle weakness. No abdominal pain or pain anywhere else. The pt was admitted through the ER by Dr. Pate today and is now on L&D History of Present Illness: Pt s/p 03/04/2018. She was discharged and readmitted today with preeclampsia. The pt was admitted through the ER by Dr. Pate today and is now on L&D. The pt had systolic BP's 160-170's a few times during the day but not persistent and the BP now improved. She is started on Mg Sulphate now for possible severe preeclampsia by symptoms. - Current Medications Current Medications: Active Medications Acetaminophen (Tylenol -) 650 mg PO Q4H PRN PRN Reason: HEADACHE Last Admin: 03/08/18 19:35 Dose: 650 mg Dextrose/Lactated Ringer's (D5-Lr -) 1,000 mls @ 75 mls/hr IV ASDIR BUDDY Magnesium Sulfate (Magnesium 4gm/H20 -) 4 gm in 100 mls @ 200 mls/hr IVPB ASDIR BUDDY; Protocol Magnesium Sulfate (Magnesium Sulfate 20gm/500ml -) 20 gm in 500 mls @ 25 mls/ hr IVPB ASDIR BUDDY; Protocol Labetalol HCl (Normodyne -) 200 mg PO Q6H PRN PRN Reason: HYPERTENSION Last Admin: 03/08/18 15:50 Dose: 200 mg Nifedipine (Procardia Xl -) 30 mg PO DAILY BUDDY Oxycodone HCl (Roxicodone -) 5 mg PO Q4H PRN PRN Reason: PAIN 4-6 - Objective Vital Signs: Vital Signs Temperature 97.9 F 03/08/18 18:00 Pulse Rate 76 03/08/18 20:00 Respiratory Rate 18 03/08/18 20:00 Blood Pressure 157/77 03/08/18 20:00 O2 Sat by Pulse Oximetry (%) 99 03/08/18 12:15 Constitutional: Yes: No Distress, Calm, Obese Eyes: Yes: WNL, Conjunctiva Clear, EOM Intact HENT: Yes: WNL, Atraumatic, Normocephalic Neck: Yes: WNL, Supple, Trachea Midline, Other (no nuchal rigidity) Cardiovascular: Yes: WNL, Regular Rate and Rhythm Respiratory: Yes: WNL, Regular, CTA Bilaterally Gastrointestinal: Yes: Normal Bowel Sounds, Soft, Abdomen, Obese, Other (Non- tender, no masses) ...Rectal Exam: Yes: Deferred Genitourinary: Yes: Vaginal Bleeding (lochia rubra) Labs Lab Results: CBC, BMP 03/08/18 07:52 03/08/18 07:52 Imaging - Results Chest X-ray: Report Reviewed EKG: Report Reviewed Assessment/Plan 27yo with preeclampsia, with severe features due to headache. Mg Sulphate bolus was finished. The neuro exam is normal and non-focal. Plan to obtain CT of head to r/o pathology. Continue the current BP meds. Plan to repeat labs and restart Mg after she returns from CT. Plan of care was d/w pt and she agreed.
[2018-03-08] MEDS ORDERED: MAGNESIUM SULFATE 20GM/500ML - 20 GM/500 ML INFUS.BAG ONE (22:44)
[2018-03-08] MEDS: MAGNESIUM SULFATE 20GM/500ML - 20 GM/500 ML INFUS.BAG IVPB SCH (23:00)
[2018-03-08] MEDS: DEXTROSE 5%-LACTATED RINGERS 1,000 ML IV SCH (23:00)
[2018-03-08 23:07] LABS: HEMATOCRIT 32.8 % (32.4-45.2); HEMOGLOBIN 10.7 GM/dL (10.7-15.3); MCH 26.7 pg (25.7-33.7); MCHC 32.5 g/dl (32.0-36.0); MEAN CELL VOLUME 82.2 fl (80-96); MEAN PLT VOLUME 9.4 fl (7.5-11.1); PLATELET COUNT 222 K/MM3 (134-434); RBC 3.99 M/mm3 (3.60-5.2); RDW 14.4 % (11.6-15.6); WHITE BLOOD COUNT 7.8 K/mm3 (4.0-10.0)
[2018-03-08 23:20] LABS: INR 0.88 (0.83-1.09); PROTHROMBIN TIME (PATIENT) 10.4 SEC (9.7-13.0)
[2018-03-08 23:23] LABS: ACTIVATED PTT 26.4 SECONDS (25.2-36.5)
[2018-03-08] MEDS ORDERED: oxyCODONE HCL 5 MG TABLET ONE (23:39)
[2018-03-08 23:58] LABS: ALBUMIN 2.5 g/dl (3.4-5.0); ALK PHOS 163 U/L (45-117); ANION GAP 8 MMOL/L (8-16); BILIRUBIN,TOTAL 0.2 mg/dL (0.2-1); BLOOD UREA NITROGEN 19 mg/dL (7-18); CALCIUM 8.5 mg/dL (8.5-10.1); CHLORIDE 105 mmol/L (98-107); CO2 26 mmol/L (21-32); CREATININE 0.8 mg/dL (0.55-1.3); GLUCOSE,RANDOM 115 mg/dL (74-106); POTASSIUM 4.4 mmol/L (3.5-5.1); SGOT/AST 37 U/L (15-37); SGPT/ALT 58 U/L (13-61); SODIUM 140 mmol/L (136-145); TOT PROT 6.3 g/dl (6.4-8.2)
[2018-03-09] MEDS ORDERED: ACETAMINOPHEN 325 MG TABLET (FP) ONE ×2 (06:17→13:06)
[2018-03-09] MEDS: ACETAMINOPHEN 325 MG TABLET (FP) PO PRN ×3 (06:20→16:46)
--- NOTE | 2018-03-09 08:24 | PN ---
Progress Note (SOAP) - Subjective Chief Complaint: Pt states that she feels better, the DODGE improved and she is now rating it 5/10. No other complaints History of Present Illness: Pt s/p 03/04/2018. She was discharged and readmitted today with preeclampsia. The pt is now on Mg Sulphate. Her BP improved, headache improved. - Current Medications Current Medications: Active Medications Acetaminophen (Tylenol -) 650 mg PO Q4H PRN PRN Reason: HEADACHE Last Admin: 03/09/18 06:20 Dose: 650 mg Magnesium Sulfate (Magnesium Sulfate 20gm/500ml -) 20 gm in 500 mls @ 25 mls/ hr IVPB [facility]; Protocol Last Admin: 03/08/18 23:00 Dose: 25 mls/hr Dextrose/Lactated Ringer's (D5-Lr -) 1,000 mls @ 25 mls/hr IV ASDIR BUDDY Last Admin: 03/08/18 23:00 Dose: 25 mls/hr Labetalol HCl (Normodyne -) 200 mg PO Q6H PRN PRN Reason: HYPERTENSION Last Admin: 03/08/18 15:50 Dose: 200 mg Nifedipine (Procardia Xl -) 30 mg PO DAILY BUDDY Oxycodone HCl (Roxicodone -) 5 mg PO Q4H PRN PRN Reason: PAIN 4-6 Last Admin: 03/08/18 23:55 Dose: 5 mg - Objective Vital Signs: Vital Signs Temperature 98.5 F 03/09/18 04:00 Pulse Rate 74 03/09/18 07:00 Respiratory Rate 18 03/09/18 07:00 Blood Pressure 139/73 03/09/18 07:00 O2 Sat by Pulse Oximetry (%) 99 03/08/18 12:15 Constitutional: Yes: No Distress, Calm, Obese Eyes: Yes: WNL, Conjunctiva Clear, EOM Intact HENT: Yes: WNL, Atraumatic, Normocephalic Neck: Yes: WNL, Supple, Trachea Midline Cardiovascular: Yes: WNL, Regular Rate and Rhythm Respiratory: Yes: WNL, Regular, CTA Bilaterally Gastrointestinal: Yes: WNL, Normal Bowel Sounds, Soft Genitourinary: Yes: WNL ....Post : Yes: Uterus firm, Uterus non-tender Breast(s): Yes: WNL Musculoskeletal: Yes: WNL Extremities: Yes: WNL Edema: Yes Edema: LLE: 1+, RLE: 1+ Integumentary: Yes: WNL Neurological: Yes: WNL, Alert, Oriented, Cran Nerves II-XII Intact ...Motor Strength: Yes: WNL Psychiatric: Yes: WNL, Alert, Oriented Labs Lab Results: CBC, BMP 03/08/18 23:00 03/08/18 23:00 Imaging - Results Cat Scan: Report Reviewed Assessment/Plan 27yo with preeclampsia, with severe features due to headache. Mg Sulphate IV infusing. The neuro exam is normal and non-focal. CT of head was WNL. At this point the pt is improving. 1. continue BP meds 2. Neuro consult re: headache 3. continue Mg Sulphate x 24hrs 4. F/u labs 5. OOB
[2018-03-09 09:04] LABS: ALBUMIN 2.3 g/dl (3.4-5.0); ALK PHOS 152 U/L (45-117); ANION GAP 8 MMOL/L (8-16); BILIRUBIN,TOTAL 0.3 mg/dL (0.2-1); BLOOD UREA NITROGEN 15 mg/dL (7-18); CALCIUM 8.2 mg/dL (8.5-10.1); CHLORIDE 105 mmol/L (98-107); CO2 27 mmol/L (21-32); CREATININE 0.7 mg/dL (0.55-1.3); GLUCOSE,RANDOM 99 mg/dL (74-106); MAGNESIUM 4.1 mg/dL (1.8-2.4); POTASSIUM 4.3 mmol/L (3.5-5.1); SGOT/AST 24 U/L (15-37); SGPT/ALT 50 U/L (13-61); SODIUM 139 mmol/L (136-145); TOT PROT 5.7 g/dl (6.4-8.2)
--- NOTE | 2018-03-09 09:13 | CONSULT ---
Consult - text type - Consultation Consultation Note: Neurology History of Present Illness 27 yo female w/ significant pmh anemia and recent induction of labor at 38 weeks , 03/04/2018 for pre-eclampsia. Patient reported after discharge she began having shortness of breath with headache and is also having chest pain on deep inspiration at this time. Patient had full pre- care and delivered at this hospital; was prescribed labetalol 200mg PO BID however did not take the medication. She returned for throbbing persistent headaches. CT head completed and reviewed, no acute changes. Neurologically without deficits and bp has been treated, headache improved with this an Tylenol. The patient denies chest pain , shortness of breath, headache and dizziness. Denies fever, chills, nausea, vomit, diarrhea and constipation. Denies dysuria, frequency, urgency and hematuria. Allergies: NKDA Past History - Past Medical History Allergies/Adverse Reactions: Allergies Allergy/AdvReac Type Severity Reaction Status Date / Time No Known Drug Allergies Allergy Verified 03/08/18 07:11 Home Medications: Ambulatory Orders Tablet 1 tab PO DAILY 03/02/18 Labetalol HCl [Normodyne -] 200 mg PO BID #60 tablet 03/06/18 Anemia: Yes Asthma: No Cancer: No Cardiac Disorders: No CVA: No COPD: No CHF: No Dementia: No Diabetes: No GI Disorders: No Disorders: No HTN: No Hypercholesterolemia: No Liver Disease: No Seizures: No Thyroid Disease: No - Surgical History Abdominal Surgery: No Appendectomy: No Cardiac Surgery: No Cholecystectomy: No Lung Surgery: No Neurologic Surgery: No Orthopedic Surgery: No - Suicide/Smoking/Psychosocial Hx Smoking History: Never smoked Have you smoked in the past 12 months: No If you are a former smoker, when did you quit?: 10 years ago Hx Alcohol Use: No Drug/Substance Use Hx: No Substance Use Type: Alcohol Hx Substance Use Treatment: No Review of Systems GENERAL/CONSTITUTIONAL: No fever or chills. No weakness. HEAD, EYES, EARS, NOSE AND THROAT: No change in vision. No ear pain or discharge. No sore throat. CARDIOVASCULAR: +Chest pain and SOB as described. RESPIRATORY: No cough, wheezing, or hemoptysis. GASTROINTESTINAL: No nausea, vomiting, diarrhea or constipation. GENITOURINARY: No dysuria, frequency, or change in urination. MUSCULOSKELETAL: No joint or muscle swelling or pain. No neck or back pain. SKIN: No rash NEUROLOGIC:+Current headache, no vertigo, loss of consciousness, or change in strength/sensation. ENDOCRINE: No increased thirst. No abnormal weight change HEMATOLOGIC/LYMPHATIC: No anemia, easy bleeding, or history of blood clots. ALLERGIC/IMMUNOLOGIC: No hives or skin allergy. *Physical Exam - Vital Signs Last Vital Signs Temp Pulse Resp BP Pulse Ox 98.2 F 81 18 159/78 100 03/08/18 07:11 03/08/18 07:11 03/08/18 07:11 03/08/18 07:11 03/08/18 07:11 GENERAL: Awake, alert, and fully oriented, in no acute distress HEAD: No signs of trauma, normocephalic, atraumatic EYES: PERRLA, EOMI, sclera anicteric, conjunctiva clear ENT: Auricles normal inspection, hearing grossly normal, nares patent, oropharynx clear without exudates. Moist mucosa NECK: Normal ROM, supple, no lymphadenopathy, JVD, or masses LUNGS: No distress, speaks full sentences, clear to auscultation bilaterally HEART: Regular rate and rhythm, normal S1 and S2, no murmurs, rubs or gallops, peripheral pulses normal and equal bilaterally. ABDOMEN: Soft, nontender, normoactive bowel sounds. No guarding, no rebound. No masses EXTREMITIES: Normal inspection, Normal range of motion, no edema. No clubbing or cyanosis. NEUROLOGICAL: Cranial nerves II through XII grossly intact. Normal speech, normal gait, no focal sensorimotor deficits SKIN: Warm, Dry, normal turgor, no rashes or lesions noted. CBCD WBC 7.8 K/mm3 (4.0-10.0) 03/08/18 23:00 RBC 3.99 M/mm3 (3.60-5.2) 03/08/18 23:00 Hgb 10.7 GM/dL (10.7-15.3) 03/08/18 23:00 Hct 32.8 % (32.4-45.2) 03/08/18 23:00 MCV 82.2 fl (80-96) 03/08/18 23:00 MCHC 32.5 g/dl (32.0-36.0) 03/08/18 23:00 RDW 14.4 % (11.6-15.6) 03/08/18 23:00 Plt Count 222 K/MM3 (134-434) 03/08/18 23:00 MPV 9.4 fl (7.5-11.1) 03/08/18 23:00 CMP Sodium 139 mmol/L (136-145) 03/09/18 08:10 Potassium 4.3 mmol/L (3.5-5.1) 03/09/18 08:10 Chloride 105 mmol/L (98-107) 03/09/18 08:10 Carbon Dioxide 27 mmol/L (21-32) 03/09/18 08:10 Anion Gap 8 MMOL/L (8-16) 03/09/18 08:10 BUN 15 mg/dL (7-18) 03/09/18 08:10 Creatinine 0.7 mg/dL (0.55-1.3) 03/09/18 08:10 Creat Clearance w eGFR > 60 (>60) 03/09/18 08:10 Random Glucose 99 mg/dL (74-106) 03/09/18 08:10 Calcium 8.2 mg/dL (8.5-10.1) L 03/09/18 08:10 Total Bilirubin 0.3 mg/dL (0.2-1) 03/09/18 08:10 AST 24 U/L (15-37) 03/09/18 08:10 ALT 50 U/L (13-61) 03/09/18 08:10 Alkaline Phosphatase 152 U/L (45-117) H 03/09/18 08:10 Total Protein 5.7 g/dl (6.4-8.2) L 03/09/18 08:10 Albumin 2.3 g/dl (3.4-5.0) L 03/09/18 08:10 CARDIAC ENZYMES Creatine Kinase 85 IU/L (26-192) 03/08/18 16:00 Troponin I 0.02 ng/ml (0.00-0.05) 03/08/18 16:00 Medical Decision Making 27 yo female w/ significant pmh anemia and recent induction of labor at 38 weeks , 03/04/2018 for pre-eclampsia. Patient reported after discharge she began having shortness of breath with headache and is also having chest pain on deep inspiration at this time. Patient had full pre- care and delivered at this hospital; was prescribed labetalol 200mg PO BID however did not take the medication. She returned for throbbing persistent headaches. CT head completed and reviewed, no acute changes. Neurologically without deficits and bp has been treated, headache improved with this an Tylenol. Would continue this for now. Would not add other migraine medication that can go through breastmilk and impact . Tight bp control, goal < 130/80. Maintain hydration. Medication compliance encouraged.
[2018-03-09 09:41] LABS: BASO % 0.2 % (0-2.0); EOS % 1.9 % (0-4.5); HEMATOCRIT 32.9 % (32.4-45.2); HEMOGLOBIN 10.7 GM/dL (10.7-15.3); MCH 26.8 pg (25.7-33.7); MCHC 32.4 g/dl (32.0-36.0); MEAN CELL VOLUME 82.8 fl (80-96); MEAN PLT VOLUME 9.7 fl (7.5-11.1); MONO % 5.9 % (3.8-10.2); PLATELET COUNT 230 K/MM3 (134-434); RBC 3.97 M/mm3 (3.60-5.2); RDW 14.1 % (11.6-15.6); WHITE BLOOD COUNT 5.9 K/mm3 (4.0-10.0)
[2018-03-09] MEDS ORDERED: NIFEdipine E.R. 30 MG TABLET (FP) PO SCH (10:00)
[2018-03-09 11:23] LABS: ACANTHOCYTES 0; ANISOCYTOSIS 0; HELMET CELLS 0; HOWELL-JOLLY BODIES 0; MACROCYTOSIS 0; OVALOCYTE 0; PLATELET ESTIMATE NORMAL; ROULEAU 0; SICKELED CELLS 0; TARGET CELLS 0; TEAR DROP CELLS 0; TOXIC GRANULATION 0
[2018-03-09] MEDS ORDERED: NIFEdipine E.R. 30 MG TABLET (FP) PO ONE (11:34)
--- NOTE | 2018-03-09 15:29 | PN ---
Progress Note (short form) - Note Progress Note: Renal follow up for hypertension Pt seen and examined at the bedside has 5/10 DODGE no blurry vision or CP no SOB Vital Signs Temperature 97.9 F 03/09/18 15:00 Pulse Rate 83 03/09/18 15:00 Respiratory Rate 18 03/09/18 15:00 Blood Pressure 140/74 03/09/18 15:00 O2 Sat by Pulse Oximetry (%) 99 03/09/18 09:00 NAD awake and alert RRR, No M/R CTA, no rales or wheeze soft NT/ND No Le edema, clubbing or cyanosis CBC, BMP 03/09/18 08:50 03/09/18 08:10 Current Medications Acetaminophen (Tylenol -) 650 mg PO Q4H PRN PRN Reason: HEADACHE Last Admin: 03/09/18 13:13 Dose: 650 mg Magnesium Sulfate (Magnesium Sulfate 20gm/500ml -) 20 gm in 500 mls @ 25 mls/ hr IVPB ASDIR BUDDY; Protocol Last Admin: 03/08/18 23:00 Dose: 25 mls/hr Dextrose/Lactated Ringer's (D5-Lr -) 1,000 mls @ 25 mls/hr IV ASDIR BUDDY Last Admin: 03/08/18 23:00 Dose: 25 mls/hr Labetalol HCl (Normodyne -) 200 mg PO Q6H PRN PRN Reason: HYPERTENSION Last Admin: 03/08/18 15:50 Dose: 200 mg Nifedipine (Procardia Xl -) 60 mg PO DAILY BUDDY Oxycodone HCl (Roxicodone -) 5 mg PO Q4H PRN PRN Reason: PAIN 4-6 Last Admin: 03/08/18 23:55 Dose: 5 mg 27 year old AA woman s/p recent vaginal delivery that presented from home with complaints of DODGE and found to have elevated BP. # Hypertension secondary to preeclampsia BP improved but not yet at goal will increase nifedpine ER to 60mg Daily and continue Labetalol PRN low salt diet pain control hopefully can d/c tomorrow if bp is better López Oliveira DO
[2018-03-09] MEDS: MAGNESIUM SULFATE 20GM/500ML - 20 GM/500 ML INFUS.BAG IVPB SCH (21:00)
[2018-03-09] MEDS: DEXTROSE 5%-LACTATED RINGERS 1,000 ML IV SCH (22:45)
[2018-03-10] MEDS: ACETAMINOPHEN 325 MG TABLET (FP) PO PRN ×2 (03:14→09:55)
--- NOTE | 2018-03-10 07:44 | PN ---
Progress Note (SOAP) - Subjective History of Present Illness: Patient reports improvement in headache today, 3-4 / 10 Reports mild continued swelling No fevers, chills, change in vision, RUQ pain Desires to breastfeed --> was told to avoid after CT - Current Medications Current Medications: Active Medications Acetaminophen (Tylenol -) 650 mg PO Q4H PRN PRN Reason: HEADACHE Last Admin: 03/10/18 03:14 Dose: 650 mg Labetalol HCl (Normodyne -) 200 mg PO Q6H PRN PRN Reason: HYPERTENSION Last Admin: 03/08/18 15:50 Dose: 200 mg Nifedipine (Procardia Xl -) 60 mg PO DAILY BUDDY Oxycodone HCl (Roxicodone -) 5 mg PO Q4H PRN PRN Reason: PAIN 4-6 Last Admin: 03/08/18 23:55 Dose: 5 mg - Objective Vital Signs: Vital Signs Temperature 98 F 03/09/18 22:00 Pulse Rate 78 03/10/18 05:58 Respiratory Rate 18 03/10/18 05:58 Blood Pressure 141/80 03/10/18 05:58 O2 Sat by Pulse Oximetry (%) 99 03/09/18 09:00 Constitutional: Yes: No Distress, Calm Respiratory: Yes: Regular Gastrointestinal: Yes: Normal Bowel Sounds, Soft ....Post : Yes: Uterus firm, Uterus non-tender, Slight lochia serosa Psychiatric: Yes: Alert, Oriented Labs Lab Results: CBC, BMP 03/09/18 08:50 03/09/18 08:10 Assessment/Plan 27 yo PPD # 6 s/p , IOL for Preeclampsia, HD # 2 readmitted for preeclampsia with severe features 1. Preeclampsia - Appreciate neurology and nephrology consult - on nifedipine 60 xl and labetalol 200 Q 6 PRN - improvement in BP control - headache - s/p head CT without pathology 2. - encouraged No need to avoid after contrast 3. Routine care 4. Discharge pending adequate BP control
--- NOTE | 2018-03-10 08:50 | PN ---
Progress Note (short form) - Note Progress Note: Neurology History of Present Illness 27 yo female w/ significant pmh anemia and recent induction of labor at 38 weeks , 03/04/2018 for pre-eclampsia. Patient reported after discharge she began having shortness of breath with headache and is also having chest pain on deep inspiration at this time. Patient had full pre- care and delivered at this hospital; was prescribed labetalol 200mg PO BID however did not take the medication. She returned for throbbing persistent headaches. CT head completed and reviewed, no acute changes. Neurologically without deficits and bp has been treated, headache improved with Tylenol and Bp control. States she's at 3/10 this AM and may be going home today. Allergies/Adverse Reactions: Allergies Allergy/AdvReac Type Severity Reaction Status Date / Time No Known Drug Allergies Allergy Verified 03/08/18 07:11 Active Medications Acetaminophen (Tylenol -) 650 mg PO Q4H PRN PRN Reason: HEADACHE Last Admin: 03/10/18 03:14 Dose: 650 mg Labetalol HCl (Normodyne -) 200 mg PO Q6H PRN PRN Reason: HYPERTENSION Last Admin: 03/08/18 15:50 Dose: 200 mg Nifedipine (Procardia Xl -) 60 mg PO DAILY [facility] Oxycodone HCl (Roxicodone -) 5 mg PO Q4H PRN PRN Reason: PAIN 4-6 Last Admin: 03/08/18 23:55 Dose: 5 mg *Physical Exam - Vital Signs Vital Signs Period Temp Pulse Resp BP Sys/Hinojosa Pulse Ox Last 24 Hr 97.9 F-98.7 F 76-94 18-18 131-156/62-87 99 GENERAL: Awake, alert, and fully oriented, in no acute distress HEAD: No signs of trauma, normocephalic, atraumatic EYES: PERRLA, EOMI, sclera anicteric, conjunctiva clear ENT: Auricles normal inspection, hearing grossly normal, nares patent, oropharynx clear without exudates. Moist mucosa NECK: Normal ROM, supple, no lymphadenopathy, JVD, or masses LUNGS: No distress, speaks full sentences, clear to auscultation bilaterally HEART: Regular rate and rhythm, normal S1 and S2, no murmurs, rubs or gallops, peripheral pulses normal and equal bilaterally. ABDOMEN: Soft, nontender, normoactive bowel sounds. No guarding, no rebound. No masses EXTREMITIES: Normal inspection, Normal range of motion, no edema. No clubbing or cyanosis. NEUROLOGICAL: Cranial nerves II through XII grossly intact. Normal speech, normal gait, no focal sensorimotor deficits SKIN: Warm, Dry, normal turgor, no rashes or lesions noted. CBCD WBC 5.9 K/mm3 (4.0-10.0) 03/09/18 08:50 RBC 3.97 M/mm3 (3.60-5.2) 03/09/18 08:50 Hgb 10.7 GM/dL (10.7-15.3) 03/09/18 08:50 Hct 32.9 % (32.4-45.2) 03/09/18 08:50 MCV 82.8 fl (80-96) 03/09/18 08:50 MCHC 32.4 g/dl (32.0-36.0) 03/09/18 08:50 RDW 14.1 % (11.6-15.6) 03/09/18 08:50 Plt Count 230 K/MM3 (134-434) 03/09/18 08:50 MPV 9.7 fl (7.5-11.1) 03/09/18 08:50 CMP Sodium 139 mmol/L (136-145) 03/09/18 08:10 Potassium 4.3 mmol/L (3.5-5.1) 03/09/18 08:10 Chloride 105 mmol/L (98-107) 03/09/18 08:10 Carbon Dioxide 27 mmol/L (21-32) 03/09/18 08:10 Anion Gap 8 MMOL/L (8-16) 03/09/18 08:10 BUN 15 mg/dL (7-18) 03/09/18 08:10 Creatinine 0.7 mg/dL (0.55-1.3) 03/09/18 08:10 Creat Clearance w eGFR > 60 (>60) 03/09/18 08:10 Random Glucose 99 mg/dL (74-106) 03/09/18 08:10 Calcium 8.2 mg/dL (8.5-10.1) L 03/09/18 08:10 Total Bilirubin 0.3 mg/dL (0.2-1) 03/09/18 08:10 AST 24 U/L (15-37) 03/09/18 08:10 ALT 50 U/L (13-61) 03/09/18 08:10 Alkaline Phosphatase 152 U/L (45-117) H 03/09/18 08:10 Total Protein 5.7 g/dl (6.4-8.2) L 03/09/18 08:10 Albumin 2.3 g/dl (3.4-5.0) L 03/09/18 08:10 CARDIAC ENZYMES Creatine Kinase 85 IU/L (26-192) 03/08/18 16:00 Troponin I 0.02 ng/ml (0.00-0.05) 03/08/18 16:00 Medical Decision Making 27 yo female w/ significant pmh anemia and recent induction of labor at 38 weeks , 03/04/2018 for pre-eclampsia. Patient reported after discharge she began having shortness of breath with headache and is also having chest pain on deep inspiration at this time. Patient had full pre-katerina care and delivered at this hospital; was prescribed labetalol 200mg PO BID however did not take the medication. She returned for throbbing persistent headaches. CT head completed and reviewed, no acute changes. Neurologically without deficits and bp being treated, headache improved to 3/10. Tight bp control, goal < 130/80. Maintain hydration. Medication compliance encouraged.
[2018-03-10] MEDS: NIFEdipine E.R 60 MG TABLET (UD) PO SCH (09:55)
--- NOTE | 2018-03-10 13:59 | PN ---
Progress Note, Physician Chief Complaint: The patient seen in her room, sitting by the bed. Reports feeling better. Head ache 2/10. BP better, but still with periodic spikes. History of Present Illness: 27 year old AA female s/p recent vaginal delivery that presented from home with complaints of DODGE and found to have elevated BP. Denies any chest pains. No shortness of breath. - Current Medication List Current Medications: Active Medications Acetaminophen (Tylenol -) 650 mg PO Q4H PRN PRN Reason: HEADACHE Last Admin: 03/10/18 09:55 Dose: 650 mg Labetalol HCl (Normodyne -) 100 mg PO BID [facility] Nifedipine (Procardia Xl -) 60 mg PO DAILY [facility] Last Admin: 03/10/18 09:55 Dose: 60 mg Oxycodone HCl (Roxicodone -) 5 mg PO Q4H PRN PRN Reason: PAIN 4-6 Last Admin: 03/08/18 23:55 Dose: 5 mg - Objective Vital Signs: Vital Signs Temperature 98.7 F 03/10/18 13:40 Pulse Rate 88 03/10/18 13:40 Respiratory Rate 18 03/10/18 13:40 Blood Pressure 139/71 03/10/18 13:40 O2 Sat by Pulse Oximetry (%) 99 03/09/18 09:00 Constitutional: Yes: Well Nourished, Anxious Eyes: Yes: Conjunctiva Clear HENT: Yes: Normocephalic Neck: Yes: Trachea Midline Cardiovascular: Yes: Regular Rate and Rhythm, S1, S2 Respiratory: Yes: CTA Bilaterally, Diminished Gastrointestinal: Yes: Normal Bowel Sounds, Soft Genitourinary: No: CVA Tenderness - Left, CVA Tenderness - Right Edema: No Neurological: Yes: Alert, Oriented Labs: CBC, BMP 03/09/18 08:50 03/09/18 08:10 INR, PTT INR 0.88 (0.83-1.09) 03/08/18 23:00 Problem List - Problems (1) hypertension Code(s): O16.5 - UNSPECIFIED MATERNAL HYPERTENSION, COMP THE PUERPERIUM (2) Head ache Code(s): R51 - HEADACHE Qualifiers: Headache type: tension-type Headache chronicity pattern: acute headache Intractability: not intractable Qualified Code(s): G44.209 - Tension-type headache, unspecified, not intractable Assessment/Plan 27 year old AA woman s/p recent vaginal delivery that presented from home with complaints of DODGE and found to have elevated BP. Post Hypertension. BP fluctuant, though in better range. Will mainatin low dose Labetelol, along with Procardia XL. If stable, can be d/c home tomorrow, and we shall follow her up as outpatient. Thank you. Sarah Martin MD
[2018-03-10] MEDS ORDERED: LABETALOL HCL 100 MG TABLET (FP) PO SCH (22:00)
[2018-03-10] MEDS: LABETALOL HCL 100 MG TABLET (FP) PO SCH (22:23)
--- NOTE | 2018-03-11 09:12 | PN ---
Progress Note (short form) - Note Progress Note: Neurology History of Present Illness 27 yo female w/ significant pmh anemia and recent induction of labor at 38 weeks , 03/04/2018 for pre-eclampsia. Patient reported after discharge she began having shortness of breath with headache and is also having chest pain on deep inspiration at this time. Patient had full pre- care and delivered at this hospital; was prescribed labetalol 200mg PO BID however did not take the medication. She returned for throbbing persistent headaches. CT head completed and reviewed, no acute changes. Neurologically without deficits and bp has been treated, headache improved with Tylenol and Bp control. States she's at 05/26 this AM and may be going home today. Well appearing, very comfortable this AM. Wants to follow up with me as outpatient for fasiculations, information give to patient for followup. Allergies/Adverse Reactions: Allergies Allergy/AdvReac Type Severity Reaction Status Date / Time No Known Drug Allergies Allergy Verified 03/08/18 07:11 Active Medications Acetaminophen (Tylenol -) 650 mg PO Q4H PRN PRN Reason: HEADACHE Last Admin: 03/10/18 09:55 Dose: 650 mg Labetalol HCl (Normodyne -) 100 mg PO BID [facility] Last Admin: 03/10/18 22:23 Dose: 100 mg Nifedipine (Procardia Xl -) 60 mg PO DAILY [facility] Last Admin: 03/10/18 09:55 Dose: 60 mg Oxycodone HCl (Roxicodone -) 5 mg PO Q4H PRN PRN Reason: PAIN 4-6 Last Admin: 03/08/18 23:55 Dose: 5 mg *Physical Exam Vital Signs Period Temp Pulse Resp BP Sys/Hinojosa Pulse Ox Last 24 Hr 97.9 F-98.7 F 82-92 18-20 139-148/71-87 100 GENERAL: Awake, alert, and fully oriented, in no acute distress HEAD: No signs of trauma, normocephalic, atraumatic EYES: PERRLA, EOMI, sclera anicteric, conjunctiva clear ENT: Auricles normal inspection, hearing grossly normal, nares patent, oropharynx clear without exudates. Moist mucosa NECK: Normal ROM, supple, no lymphadenopathy, JVD, or masses LUNGS: No distress, speaks full sentences, clear to auscultation bilaterally HEART: Regular rate and rhythm, normal S1 and S2, no murmurs, rubs or gallops, peripheral pulses normal and equal bilaterally. ABDOMEN: Soft, nontender, normoactive bowel sounds. No guarding, no rebound. No masses EXTREMITIES: Normal inspection, Normal range of motion, no edema. No clubbing or cyanosis. NEUROLOGICAL: Cranial nerves II through XII grossly intact. Normal speech, normal gait, no focal sensorimotor deficits SKIN: Warm, Dry, normal turgor, no rashes or lesions noted. CBCD WBC 5.9 K/mm3 (4.0-10.0) 03/09/18 08:50 RBC 3.97 M/mm3 (3.60-5.2) 03/09/18 08:50 Hgb 10.7 GM/dL (10.7-15.3) 03/09/18 08:50 Hct 32.9 % (32.4-45.2) 03/09/18 08:50 MCV 82.8 fl (80-96) 03/09/18 08:50 MCHC 32.4 g/dl (32.0-36.0) 03/09/18 08:50 RDW 14.1 % (11.6-15.6) 03/09/18 08:50 Plt Count 230 K/MM3 (134-434) 03/09/18 08:50 MPV 9.7 fl (7.5-11.1) 03/09/18 08:50 CMP Sodium 139 mmol/L (136-145) 03/09/18 08:10 Potassium 4.3 mmol/L (3.5-5.1) 03/09/18 08:10 Chloride 105 mmol/L (98-107) 03/09/18 08:10 Carbon Dioxide 27 mmol/L (21-32) 03/09/18 08:10 Anion Gap 8 MMOL/L (8-16) 03/09/18 08:10 BUN 15 mg/dL (7-18) 03/09/18 08:10 Creatinine 0.7 mg/dL (0.55-1.3) 03/09/18 08:10 Creat Clearance w eGFR > 60 (>60) 03/09/18 08:10 Random Glucose 99 mg/dL (74-106) 03/09/18 08:10 Calcium 8.2 mg/dL (8.5-10.1) L 03/09/18 08:10 Total Bilirubin 0.3 mg/dL (0.2-1) 03/09/18 08:10 AST 24 U/L (15-37) 03/09/18 08:10 ALT 50 U/L (13-61) 03/09/18 08:10 Alkaline Phosphatase 152 U/L (45-117) H 03/09/18 08:10 Total Protein 5.7 g/dl (6.4-8.2) L 03/09/18 08:10 Albumin 2.3 g/dl (3.4-5.0) L 03/09/18 08:10 CARDIAC ENZYMES Creatine Kinase 85 IU/L (26-192) 03/08/18 16:00 Troponin I 0.02 ng/ml (0.00-0.05) 03/08/18 16:00 Medical Decision Making 27 yo female w/ significant pmh anemia and recent induction of labor at 38 weeks , 03/04/2018 for pre-eclampsia. Patient reported after discharge she began having shortness of breath with headache and is also having chest pain on deep inspiration at this time. Patient had full pre- care and delivered at this hospital; was prescribed labetalol 200mg PO BID however did not take the medication. She returned for throbbing persistent headaches. CT head completed and reviewed, no acute changes. Neurologically without deficits and bp being treated, headache improved to /10. Tight bp control, goal < 130/80. Maintain hydration. Medication compliance encouraged. Outpatient follow up information provided. Neurologically stable for discharge.
--- NOTE | 2018-03-11 10:45 | PN ---
Progress Note, Physician Chief Complaint: The patient seen in her room, Reports feeling well. No head ache. BP in much better range. History of Present Illness: 27 year old AA female s/p recent vaginal delivery that presented from home with complaints of DODGE and found to have elevated BP. No headache today. - Current Medication List Current Medications: Active Medications Acetaminophen (Tylenol -) 650 mg PO Q4H PRN PRN Reason: HEADACHE Last Admin: 03/10/18 09:55 Dose: 650 mg Labetalol HCl (Normodyne -) 100 mg PO BID [facility] Last Admin: 03/10/18 22:23 Dose: 100 mg Nifedipine (Procardia Xl -) 60 mg PO DAILY [facility] Last Admin: 03/10/18 09:55 Dose: 60 mg Oxycodone HCl (Roxicodone -) 5 mg PO Q4H PRN PRN Reason: PAIN 4-6 Last Admin: 03/08/18 23:55 Dose: 5 mg - Objective Vital Signs: Vital Signs Temperature 98.7 F 03/10/18 22:00 Pulse Rate 82 03/11/18 05:41 Respiratory Rate 18 03/11/18 05:41 Blood Pressure 140/87 03/11/18 05:41 O2 Sat by Pulse Oximetry (%) 100 03/10/18 22:00 Constitutional: Yes: Well Nourished, No Distress Eyes: Yes: Conjunctiva Clear HENT: Yes: Atraumatic Neck: Yes: Trachea Midline Cardiovascular: Yes: Regular Rate and Rhythm, S1, S2 Respiratory: Yes: Regular Gastrointestinal: Yes: Normal Bowel Sounds, Soft Genitourinary: Yes: Bladder Distention Edema: No Labs: CBC, BMP 03/09/18 08:50 03/09/18 08:10 INR, PTT INR 0.88 (0.83-1.09) 03/08/18 23:00 Problem List - Problems (1) hypertension Code(s): O16.5 - UNSPECIFIED MATERNAL HYPERTENSION, COMP THE PUERPERIUM (2) Head ache Code(s): R51 - HEADACHE Qualifiers: Headache type: tension-type Headache chronicity pattern: acute headache Intractability: not intractable Qualified Code(s): G44.209 - Tension-type headache, unspecified, not intractable Assessment/Plan 27 year old AA woman s/p recent vaginal delivery that presented from home with complaints of DODGE and found to have elevated BP. BP in better range. Will continue the Labetalol and Procardia XL. Follow up in my office in 2 weeks. BP monitor at home. Thanks again. Sarah Martin MD
[2018-03-11] MEDS: LABETALOL HCL 100 MG TABLET (FP) PO SCH (10:47)
[2018-03-11] MEDS: NIFEdipine E.R 60 MG TABLET (UD) PO SCH (10:47)
[2018-03-11 14:51] VITALS: BP 139/86; PULSE 80; TEMP 98.4
--- NOTE | 2018-03-11 17:39 | PN ---
Progress Note (short form) - Note Progress Note: 8AM PATIENT SEEN AND EXAMINED NO C/O, NO HEADACHE , NO BLURRED VISION, NO RUQ PAIN CBC, BMP 03/09/18 08:50 03/09/18 08:10 Last Vital Signs Temp Pulse Resp BP Pulse Ox 98.4 F 80 22 H 139/86 100 03/11/18 10:00 03/11/18 10:00 03/11/18 10:00 03/11/18 10:00 03/10/18 22:00 ABDOMEN SOFT, NON TENDER , NO RUQ TENDERNESS UTERUS FIRM, NON TENDER NO CALF TENDERNESS LOCHIA MILD TRACE LEGS EDEMA BILATERALLY IMPRESSION BP FOR MOST PART STABLE ON LABETALOL PLAN MEDICAL/RENAL EVALUATION FOR POSSIBLE D/C HOME TODAY ON LABETALOL. INSTRUCTION AND FOLLOW UP DISCUSSED WITH PATIENT IMPORTANCE FILLING HER RX AND TAKING ANTI HTN MEDS DISCUSSED Problem List - Problems (1) Pre-eclampsia Code(s): O14.90 - UNSPECIFIED PRE-ECLAMPSIA, UNSPECIFIED TRIMESTER Qualifiers: Trimester: unspecified trimester Qualified Code(s): O14.90 - Unspecified pre-eclampsia, unspecified trimester (2) induced hypertension Code(s): O13.9 - GESTATIONAL HTN W/O SIGNIFICANT PROTEINURIA, UNSP TRIMESTER Qualifiers: Trimester: unspecified trimester Qualified Code(s): O13.9 - Gestational [ -induced] hypertension without significant proteinuria, unspecified trimester (3) hypertension Code(s): O16.5 - UNSPECIFIED MATERNAL HYPERTENSION, COMP THE PUERPERIUM
--- NOTE | 2018-03-11 17:40 | DS ---
Physical Exam-[employer] Vital Signs: Vital Signs Temperature 98.4 F 03/11/18 10:00 Pulse Rate 80 03/11/18 10:00 Respiratory Rate 22 H 03/11/18 10:00 Blood Pressure 139/86 03/11/18 10:00 O2 Sat by Pulse Oximetry (%) 100 03/10/18 22:00 Constitutional: Yes: Well Nourished, No Distress, Calm Eyes: Yes: WNL, Conjunctiva Clear, EOM Intact HENT: Yes: WNL, Atraumatic, Normocephalic Neck: Yes: WNL, Supple, Trachea Midline Cardiovascular: Yes: WNL, Regular Rate and Rhythm Respiratory: Yes: WNL, Regular, CTA Bilaterally Gastrointestinal: Yes: WNL, Normal Bowel Sounds, Soft ...Rectal Exam: Yes: WNL Renal/: Yes: WNL Pelvis: Yes: WNL External Genitalia: Yes: Normal Internal Exam Deferred: Yes ....Post : Yes: Uterus firm, Uterus non-tender, Slight lochia rubra Breast(s): Yes: WNL Musculoskeletal: Yes: WNL Extremities: Yes: WNL Edema: LLE: Trace, RLE: Trace Integumentary: Yes: WNL Neurological: Yes: WNL, Alert, Oriented ...Motor Strength: WNL Psychiatric: Yes: WNL, Alert, Oriented Labs: CBC, BMP 03/09/18 08:50 03/09/18 08:10 Discharge Summary Reason For Visit: ELEVATED BLOOD PRESSURE Hospital Course: txed with magnisium sulfate , antihypertensive med, labetalol and procardia, BP stablized , had normal CT scan of head due to c/o of headache, all her complaints were resolved prior to discharge home, she will cont. taking labetalol and will make appointment with me and DR Martin in 1 week Condition: Stable - Instructions Diet, Activity, Other Instructions: regular diet, follow up with DR Oliveira 1 week, follow up office 4 weeks, if headache, chest pain,shortness of breath call Referrals: Sarah Martin MD [Staff Physician] - Shun Pate MD [Primary Care Provider] - Disposition: VNS/HOME HEALTH CARE - Home Medications Comprehensive Discharge Medication List: Ambulatory Orders Tablet 1 tab PO DAILY 03/02/18 Labetalol HCl [Normodyne -] 200 mg PO BID #60 tablet 03/06/18
== END 2018-03-11 13:20 | disposition home health service (06) | DRG 561 ==
LOC: JER 06:55 → JLDR 12:00 → J3W 03-09 16:25
PROVIDERS: ADMIT Obstetrics & Gynecology; ATTEND Obstetrics & Gynecology
DX: O11.5 Pre-existing hypertension with pre-eclampsia, complicating the puerperium (principal); O10.03 Pre-existing essential hypertension complicating the puerperium; Z68.41 Body mass index [BMI] 40.0-44.9, adult; E66.9 Obesity, unspecified; Z87.891 Personal history of nicotine dependence; D64.9 Anemia, unspecified; Z91.19 Patient's noncompliance with other medical treatment and regimen
CPT/HCPCS: 36415; 70450-TC; 71045-TC-FY; 80053; 81003; 81015; 82550; 83735; 84484; 84550; 84702; 85025; 85027; 85610; 85730; 86850; 86900; 86901; 87086; 93005; 93010; 99285-25; J0131

== ENCOUNTER 2018-09-07 10:37 | Emergency (ER) | payer OTHER ==
[2018-09-07 10:42] VITALS: BP 124/70; PULSE 97; TEMP 98.9; BMI 32.9
[2018-09-07] MEDS ORDERED: ACETAMINOPHEN 500 MG TABLET (FP) PO ONE (12:07)
[2018-09-07] MEDS ORDERED: IBUPROFEN 600 MG TABLET (FP) PO ONE ×2 (12:07→12:20)
--- NOTE | 2018-09-07 12:12 | PDOC ---
History of Present Illness - General Chief Complaint: Cold Symptoms Stated Complaint: COLD SYMPTOMS / HEADACHE Time Seen by Provider: 09/07/18 12:00 History Source: Patient Exam Limitations: No Limitations - History of Present Illness Initial Comments: 09/07/18 12:12 This is a 28yoF with PMH pre-eclampsia who presents to the ED with fevers, headaches, sore throat and dry cough for 5 days. Pt has taken OTC pain relievers with minimal relief of symptoms. Patient reports her mother has been experiencing similar symptoms over the past 2 weeks. Timing/Duration: reports: other (5 days) Severity: reports: moderate Associated Symptoms: reports: cough, fever/chills, headache, muscle aches Past History - Past Medical History Allergies/Adverse Reactions: Allergies Allergy/AdvReac Type Severity Reaction Status Date / Time No Known Drug Allergies Allergy Verified 09/07/18 10:42 Home Medications: Ambulatory Orders NK [No Known Home Medication] 09/07/18 Anemia: Yes Asthma: No Cancer: No Cardiac Disorders: No CVA: No COPD: No CHF: No Dementia: No Diabetes: No GI Disorders: No Disorders: No HTN: Yes (gestational) Hypercholesterolemia: No Liver Disease: No Seizures: No Thyroid Disease: No Other medical history: pre-eclampsia during 2018 - Surgical History Abdominal Surgery: No Appendectomy: No Cardiac Surgery: No Cholecystectomy: No Lung Surgery: No Neurologic Surgery: No Orthopedic Surgery: No - Suicide/Smoking/Psychosocial Hx Smoking History: Never smoked Have you smoked in the past 12 months: No If you are a former smoker, when did you quit?: 10 years ago Information on smoking cessation initiated: No Hx Alcohol Use: No Drug/Substance Use Hx: No Substance Use Type: Alcohol Hx Substance Use Treatment: No Review of Systems - Review of Systems Able to Perform ROS?: Yes Is the patient limited Yi proficient: No Constitutional: Yes: See HPI HEENTM: No: Symptoms Reported Respiratory: Yes: See HPI Cardiac (ROS): No: Symptoms Reported ABD/GI: No: Symptoms Reported : No: Symptoms Reported Musculoskeletal: Yes: See HPI Integumentary: No: Symptoms Reported Neurological: Yes: See HPI Endocrine: No: Symptoms Reported Hematologic/Lymphatic: No: Symptoms Reported *Physical Exam - Vital Signs Last Vital Signs Temp Pulse Resp BP Pulse Ox 98.9 F 97 H 18 124/70 99 09/07/18 10:40 09/07/18 10:40 09/07/18 10:40 09/07/18 10:40 09/07/18 10:40 - Physical Exam General Appearance: Yes: Appropriately Dressed. No: Apparent Distress HEENT: positive: Pharyngeal Erythema. negative: Muffled/Hoarse voice, Tonsillar Exudate, Tonsillar Erythema, Nasal Congestion, Sinus Tenderness Neck: positive: Trachea midline, Supple Respiratory/Chest: positive: Lungs Clear, Normal Breath Sounds. negative: Chest Tender, Respiratory Distress, Accessory Muscle Use Cardiovascular: positive: Regular Rhythm, Regular Rate, S1, S2. negative: Edema , Murmur Gastrointestinal/Abdominal: positive: Normal Bowel Sounds, Soft. negative: Tender Musculoskeletal: positive: Normal Inspection. negative: CVA Tenderness Integumentary: positive: Normal Color, Dry, Warm Neurologic: positive: buyer agent II-XII NML intact, Fully Oriented, Alert, Normal Mood/ Affect, Normal Response, Motor Strength 5/5 Medical Decision Making - Medical Decision Making 09/07/18 12:17 A/P: 28yoF with 5 days of URI symptoms symptoms c/w influenza-like illness. As patient is outside of the treatment window for influenza, I will defer treatment at this time. strep testing Tylenol Motrin reassess 09/07/18 12:40 Rapid strep testing is negative. 09/07/18 13:02 DODGE currently 6/10 and is "tolerable." I will d/c home with instructions for supportive treatment. Pt has verbalized understanding of d/c instructions. *DC/Admit/Observation/Transfer Diagnosis at time of Disposition: Viral upper respiratory illness - Discharge Dispostion Disposition: HOME Condition at time of disposition: Stable Decision to Admit order: No - Referrals - Patient Instructions Printed Discharge Instructions: DI for Viral Upper Respiratory Infection -- Adult Additional Instructions: Keep well hydrated. Take Tylenol and/or Motrin as needed for fevers/pain. Return to ER for any new or worsening symptoms. - Post Discharge Activity Forms/Work/School Notes: Back to Work
[2018-09-07] MEDS ORDERED: ACETAMINOPHEN 500 MG TABLET (FP) ONE (12:20)
== END 2018-09-07 13:07 | disposition home or self-care (01) ==
LOC: JERFT 10:37
DX: J06.9 Acute upper respiratory infection, unspecified (principal); B97.89 Other viral agents as the cause of diseases classified elsewhere; I10 Essential (primary) hypertension; Z87.891 Personal history of nicotine dependence
CPT/HCPCS: 87070; 87880; 99281-25

== ENCOUNTER 2018-09-22 08:57 | Emergency (ER) | payer SELFPAY ==
[2018-09-22 09:09] VITALS: TEMP 97.9; BMI 34.7
[2018-09-22] MEDS ORDERED: SODIUM CHLORIDE 1,000 ML IV STA (09:35)
[2018-09-22 09:59] LABS: BASO % 0.3 % (0-2.0); EOS % 1.1 % (0-4.5); HEMATOCRIT 37.6 % (32.4-45.2); HEMOGLOBIN 12.2 GM/dL (10.7-15.3); LYMPH % 15.9 % (8-40); MCH 26.2 pg (25.7-33.7); MCHC 32.4 g/dl (32.0-36.0); MEAN CELL VOLUME 80.8 fl (80-96); MEAN PLT VOLUME 9.1 fl (7.5-11.1); NEUT % 75.7 % (42.8-82.8); PLATELET COUNT 254 K/MM3 (134-434); RBC 4.66 M/mm3 (3.60-5.2); RDW 13.4 % (11.6-15.6); WHITE BLOOD COUNT 6.3 K/mm3 (4.0-10.0)
[2018-09-22] MEDS ORDERED: PANTOPRAZOLE SODIUM 40 MG in SODIUM CHLORIDE 100 ML IVPB ONE (10:18)
[2018-09-22] MEDS ORDERED: KETOROLAC TROMETHAMINE 30 MG/1 ML VIAL IVPUSH ONE (10:18)
--- NOTE | 2018-09-22 10:18 | PDOC ---
History of Present Illness - General Chief Complaint: Chest Pain Stated Complaint: CHEST PAIN/ ABD PAIN Time Seen by Provider: 09/22/18 09:18 History Source: Patient Exam Limitations: No Limitations - History of Present Illness Travel History: No Initial Comments: 09/22/18 10:00 8-year-old female presents to ED with 5 episodes of diarrhea intermittently for the past 2 days now associated with episodic frontal throbbing headache that lasted about 2 minutes while riding the bus this morning associated with upper abdominal gnawing sensation intermittently for the past day and palpitations to her right chest lasting approximately 10 seconds. Patient states all symptoms have resolved except for epigastric gnawing sensation. Patient currently denies nausea although she states nausea with the headache while riding the bus. patient took nothing for the symptoms and decided come to the ER for further evaluation. Patient has no complaints of irregular menses, recent travel but states had flulike symptoms approximately 2 weeks ago. Patient also has no urinary complaints rash, lower abdominal pain, back pain or difficulty breathing Timing/Duration: reports: changing over time Quality: reports: mild, dullness Abdominal Pain Onset Location: reports: epigastric Pain Radiation: reports: no radiation Activities at Onset: reports: none Aggravating Factors: improves with: None Alleviating Factors: improves with: None Past History - Travel Traveled outside of the country in the last 30 days: No Close contact w/someone who was outside of country & ill: No - Past Medical History Allergies/Adverse Reactions: Allergies Allergy/AdvReac Type Severity Reaction Status Date / Time No Known Drug Allergies Allergy Verified 09/22/18 10:15 Home Medications: Ambulatory Orders Nitrofurantoin Monohyd/M-Cryst [Macrobid -] 100 mg PO BID #14 capsule 09/22/18 Anemia: Yes Asthma: No Cancer: No Cardiac Disorders: No CVA: No COPD: No CHF: No Dementia: No Diabetes: No GI Disorders: No Disorders: No HTN: Yes (gestational) Hypercholesterolemia: No Liver Disease: No Seizures: No Thyroid Disease: No - Surgical History Abdominal Surgery: No Appendectomy: No Cardiac Surgery: No Cholecystectomy: No Lung Surgery: No Neurologic Surgery: No Orthopedic Surgery: No - Suicide/Smoking/Psychosocial Hx Smoking History: Never smoked Have you smoked in the past 12 months: No If you are a former smoker, when did you quit?: 10 years ago Hx Alcohol Use: Yes Drug/Substance Use Hx: No Substance Use Type: Alcohol Hx Substance Use Treatment: No Patient Lives Alone: No Lives with/in: spouse/SO Review of Systems - Review of Systems Able to Perform ROS?: No Is the patient limited Maltese proficient: No Constitutional: Yes: Weakness (mild generalized) HEENTM: No: Symptoms Reported Respiratory: No: Symptoms reported Cardiac (ROS): No: Symptoms Reported ABD/GI: No: Symptoms Reported : No: Symptoms Reported Musculoskeletal: No: Symptoms Reported Integumentary: No: Symptoms Reported Neurological: No: Symptoms reported *Physical Exam - Vital Signs Last Vital Signs Temp Pulse Resp BP Pulse Ox 97.9 F 74 16 129/73 100 09/22/18 09:06 09/22/18 09:06 09/22/18 09:06 09/22/18 09:06 09/22/18 09:06 - Physical Exam General Appearance: Yes: Nourished, Appropriately Dressed. No: Apparent Distress HEENT: positive: EOMI, BIENVENIDO. negative: Pale Conjunctivae Neck: positive: Supple Respiratory/Chest: positive: Lungs Clear, Normal Breath Sounds. negative: Respiratory Distress, Accessory Muscle Use Cardiovascular: positive: Regular Rhythm, Regular Rate. negative: Murmur Gastrointestinal/Abdominal: positive: Soft, Tenderness (mild epigastric) Musculoskeletal: negative: CVA Tenderness Extremity: positive: Normal Inspection Integumentary: positive: Normal Color, Warm, Moist Neurologic: positive: Motor Strength 5/5 (ambulatory) ED Treatment Course - LABORATORY CBC & Chemistry Diagram: 09/22/18 09:40 09/22/18 09:40 - ADDITIONAL ORDERS Additional order review: 09/22/18 09:40 RBC 4.66 MCV 80.8 MCHC 32.4 RDW 13.4 MPV 9.1 Neutrophils % 75.7 Lymphocytes % 15.9 D Monocytes % 7.0 Eosinophils % 1.1 Basophils % 0.3 Medical Decision Making - Medical Decision Making 09/22/18 10:17 Chief complaint: Episodic and self-limiting frontal headache earlier this a.m. along with palpitations to the right chest now complaining of a gnawing sensation to her epigastric area and 5 episodes of diarrhea over the past 2 days Exam: Vital stable. Patient with mild epigastric tenderness with no other abnormal findings Plan: Labs, urine, IV fluids and protonix 09/22/18 12:14 Laboratory Tests 09/22/18 09/22/18 09/22/18 09:40 09:40 11:05 WBC 6.3 Hgb 12.2 Hct 37.6 Neutrophils % 75.7 Lymphocytes % 15.9 D Monocytes % 7.0 Eosinophils % 1.1 Basophils % 0.3 Nucleated RBC % 0 Sodium 138 Potassium 4.6 Chloride 106 Carbon Dioxide 28 Anion Gap 4 L BUN 14 Creatinine 0.9 Est GFR (CKD-EPI)AfAm 100.14 Est GFR (CKD-EPI)NonAf 86.41 Random Glucose 80 Calcium 8.9 Magnesium 2.0 Total Bilirubin 0.1 L AST 13 L ALT 24 Alkaline Phosphatase 97 Creatine Kinase 89 Troponin I < 0.02 Total Protein 7.3 Albumin 3.4 Lipase 130 Urine Ketones Negative Urine Nitrite Negative Urine Bilirubin Negative Ur Leukocyte Esterase 2+ H Urine WBC (Auto) 10 Urine RBC (Auto) 5 Urine HCG, Qual Negative States feeling much better with no complaints presently. Patient with noted bacteria and leukocytes in urine. Patient does complain of intermittent pressure with urination when questioned. Urine culture will be sent patient be discharged home with Macrobid. *DC/Admit/Observation/Transfer Diagnosis at time of Disposition: Urinary tract infection - Discharge Dispostion Disposition: HOME Condition at time of disposition: Improved - Prescriptions Prescriptions: Nitrofurantoin Monohyd/M-Cryst [Macrobid -] 100 mg PO BID #14 capsule - Referrals - Patient Instructions Printed Discharge Instructions: DI for Urinary Tract Infection (UTI) Additional Instructions: Drink plenty of fluids for the next few days and take antibiotics as prescribed Eat well-balanced meals and return to emergency room if your symptoms worsen. Otherwise follow-up with her primary care physician. - Post Discharge Activity Forms/Work/School Notes: Back to Work
[2018-09-22 10:22] LABS: ALBUMIN 3.4 g/dl (3.4-5.0); ALK PHOS 97 U/L (45-117); ANION GAP 4 MMOL/L (8-16); BILIRUBIN,TOTAL 0.1 mg/dL (0.2-1); BLOOD UREA NITROGEN 14 mg/dL (7-18); CALCIUM 8.9 mg/dL (8.5-10.1); CHLORIDE 106 mmol/L (98-107); CO2 28 mmol/L (21-32); CREATININE 0.9 mg/dL (0.55-1.3); GLUCOSE,RANDOM 80 mg/dL (74-106); POTASSIUM 4.6 mmol/L (3.5-5.1); SGOT/AST 13 U/L (15-37); SGPT/ALT 24 U/L (13-61); SODIUM 138 mmol/L (136-145); TOT PROT 7.3 g/dl (6.4-8.2)
[2018-09-22] MEDS ORDERED: PANTOPRAZOLE SODIUM 40 MG/100 ML BAG IVPB ONE (10:22)
[2018-09-22] MEDS ORDERED: KETOROLAC TROMETHAMINE 30 MG/1 ML VIAL ONE (10:23)
[2018-09-22 11:32] LABS: LIPASE 130 U/L (73-393)
[2018-09-22 11:39] LABS: EPI CELLS 5.5 /HPF (0-5/HPF); PH,URINE 5.5 (5.0-8.0); URINE APPEARANCE CLEAR; URINE BACTERIA 94.8 /hpf (NEGATIVE); URINE BILIRUBIN NEGATIVE (NEGATIVE); URINE CASTS 1 /lpf (0-8); URINE COLOR YELLOW; URINE GLUCOSE (UA) NEGATIVE (NEGATIVE); URINE KETONE NEGATIVE (NEGATIVE); URINE LEUK ESTERASE 2+ (NEGATIVE); URINE NITRITE NEGATIVE (NEGATIVE); URINE PROTEIN NEGATIVE (NEGATIVE); URINE RBC 5 /hpf (0-4); URINE UROBILINOGEN 0.2 mg/dL (0.2-1.0); URINE WBC 10 /hpf (0-5)
[2018-09-22 12:09] LABS: HCG,QUALITATIVE URINE NEGATIVE
[2018-09-22 12:28] VITALS: BP 132/70; PULSE 72
--- NOTE | 2018-09-22 17:16 | EKG ---
Test Reason : Blood Pressure : / mmHG Vent. Rate : 073 BPM Atrial Rate : 073 BPM P-R Int : 188 ms QRS Dur : 072 ms QT Int : 336 ms P-R-T Axes : 007 067 019 degrees QTc Int : 370 ms NORMAL SINUS RHYTHM NORMAL ECG WHEN COMPARED WITH ECG OF 08-MAR-2018 07:33, CRITERIA FOR SEPTAL INFARCT ARE NO LONGER PRESENT Confirmed by GLORIA VERDIN MD ([id number]) on 09/22/2018 5:15:21 PM Referred By: Confirmed By:GLORIA VERDIN MD
== END 2018-09-22 12:28 | disposition home or self-care (01) ==
LOC: JER 08:57
PROC: 3E033GC Introduction of Other Therapeutic Substance into Peripheral Vein, Percutaneous Approach (ICD-10-PCS; principal; 2018-09-22)
PROC: 3E0333Z Introduction of Anti-inflammatory into Peripheral Vein, Percutaneous Approach (ICD-10-PCS; 2018-09-22)
PROC: 3E0337Z Introduction of Electrolytic and Water Balance Substance into Peripheral Vein, Percutaneous Approach (ICD-10-PCS; 2018-09-22)
DX: N39.0 Urinary tract infection, site not specified (principal)
CPT/HCPCS: 36415; 80053; 81003; 82550; 83690; 83735; 84484; 84703; 85025; 93005; 93010; 99282-25; J7030

== ENCOUNTER 2019-01-04 04:09 | Emergency (ER) | payer OTHER ==
--- NOTE | 2019-01-04 04:30 | PDOC ---
History of Present Illness - General Stated Complaint: ABD PAIN Time Seen by Provider: 01/04/19 04:29 History Source: Patient Exam Limitations: No Limitations - History of Present Illness Initial Comments: Pt is a 28 yo F, with PMH of pre-eclampsia and anemia, who presents with cramping abdominal pain, and 1 episode of NBNB vomiting that woke her from sleep just prior to arrival. Pt states she is still having the cramping abdominal pain, and now feels that she may have diarrhea. Pt denies any new or raw foods. Pt denies any recent fevers/chills, headache, vision changes, syncope , chest pain, palpitations, SOB, urinary symptoms, constipation, or leg swelling. Allergies: NKDA PCP: None Social: Pt denies any cigarette, alcohol, or drug use. Pt denies any recent travel or sick contacts. Surgical: no relevant history. Family: no relevant history. 01/04/19 04:53 Past History - Travel Traveled outside of the country in the last 30 days: No Close contact w/someone who was outside of country & ill: No - Past Medical History Allergies/Adverse Reactions: Allergies Allergy/AdvReac Type Severity Reaction Status Date / Time No Known Drug Allergies Allergy Verified 01/04/19 04:39 Home Medications: Ambulatory Orders NK [No Known Home Medication] 01/04/19 Anemia: Yes Asthma: No Cancer: No Cardiac Disorders: No CVA: No COPD: No CHF: No Dementia: No Diabetes: No GI Disorders: No Disorders: No HTN: Yes (gestational) Hypercholesterolemia: No Liver Disease: No Seizures: No Thyroid Disease: No - Surgical History Abdominal Surgery: No Appendectomy: No Cardiac Surgery: No Cholecystectomy: No Lung Surgery: No Neurologic Surgery: No Orthopedic Surgery: No - Suicide/Smoking/Psychosocial Hx Smoking History: Never smoked Have you smoked in the past 12 months: No If you are a former smoker, when did you quit?: 10 years ago Hx Alcohol Use: Yes Drug/Substance Use Hx: No Substance Use Type: Alcohol Hx Substance Use Treatment: No Abd/GI Specific PMHX - Complaint Specific PMHX Colitis: No Irritable Bowel Synd (IBS): No Pancreatitis: No GI Ulcer Disease: No Review of Systems - Review of Systems Able to Perform ROS?: Yes Is the patient limited Italian proficient: No Constitutional: Yes: Weight Stable. No: Chills, Diaphoresis, Fever, Loss of Appetite, Malaise HEENTM: No: Blurred Vision, Double Vision, Nose Congestion, Throat Pain, Throat Swelling, Difficulty Swallowing Respiratory: No: Cough, Orthopnea, Shortness of Breath Cardiac (ROS): No: Chest Pain, Edema, Irregular Heart Rate, Lightheadedness, Palpitations, Syncope, Chest Tightness ABD/GI: Yes: Nausea, Vomiting, Abdominal cramping. No: Constipated, Diarrhea, Difficulty Swallowing, Poor Appetite, Poor Fluid Intake, Rectal Bleeding, Tarry Stools : No: Burning, Dysuria, Frequency, Flank Pain, Hematuria, Pain, Urgency Musculoskeletal: No: Back Pain, Joint Pain, Muscle Pain, Muscle Weakness Integumentary: No: Rash Neurological: No: Headache, Numbness, Weakness, Unsteady Gait, Dizziness Psychiatric: No: Sleep Pattern Change, Change in Appetite Endocrine: No: Increased Urine, Change in Weight Hematologic/Lymphatic: Yes: Anemia. No: Blood Clots, Easy Bleeding, Easy Bruising All Other Systems: Reviewed and Negative *Physical Exam - Physical Exam Comments: Vitals stable, pt afebrile. Pt appears uncomfortable but in NAD. Obese body habitus. Pt alert and oriented x3. director banking generally intact, muscular strength and sensation intact. No midline spinal tenderness, step-offs, or crepitus. Head normocephalic, atraumatic. Eyes PERRLA, EOMI. Oropharynx without erythema or exudates, no LAD b/l. No nasal congestion, hearing intact. Clear heart sounds, S1/S2, no JVD, b/l pedal edema, or heart murmur. Clear lung sounds, no respiratory distress, wheezes, crackles, or accessory muscle use. No abdominal or CVA tenderness to palpation, no rebound, no guarding. Abdomen soft, non-distended, and with normoactive bowel sounds. Benign abdominal exam. Skin without jaundice or rash. 01/04/19 05:02 ED Treatment Course - LABORATORY CBC & Chemistry Diagram: 01/04/19 04:55 01/04/19 04:55 Medical Decision Making - Medical Decision Making Pt was seen at bedside, also will be seen by attending Dr. Umanzor. Pt presenting with 1 episode of n/v, now feels that she is going to have diarrhea, with cramping abdominal pain. Consistent with IBS vs gastroenteritis. Provided 1 L IV NS, 1 g IV ofirmev, 20 mg IV pepcid for improvement of GI discomfort. Will continue to reassess pt and monitor for symptomatic improvement. 01/04/19 05:03 CBC, CMP, UA all WNL Pt states feeling much improved after interventions Pt safe for d/c home after receiving IVF. 01/04/19 06:00 Abdominal exam soft and non-tender. Pt sitting up in bed comfortably and states she is ready to leave. Strict return precautions provided with pt understanding. 01/04/19 06:18 *DC/Admit/Observation/Transfer Diagnosis at time of Disposition: Abdominal cramping Nausea and vomiting Qualifiers: Vomiting type: unspecified Vomiting Intractability: non-intractable Qualified Code(s): R11.2 - Nausea with vomiting, unspecified - Discharge Dispostion Disposition: HOME Condition at time of disposition: Improved Decision to Admit order: No - Referrals Referrals: [facility] [place] [Provider Group] - Patient Instructions Printed Discharge Instructions: DI for Vomiting -- Adult Additional Instructions: You were seen in the ER today for nausea and vomiting. The results of your labs today were normal. Please follow-up with your primary care doctor within 1-2 days to discuss your visit and make sure your symptoms have improved. Please return to the ER if you have any worsening pain, development of fevers or chills , loss of consciousness, inability to tolerate food or fluids, or any other concerns. - Post Discharge Activity
--- NOTE | 2019-01-04 04:30 | PDOC ---
History of Present Illness - General Stated Complaint: ABD PAIN Time Seen by Provider: 01/04/19 04:29 Past History - Past Medical History Allergies/Adverse Reactions: Allergies Allergy/AdvReac Type Severity Reaction Status Date / Time No Known Drug Allergies Allergy Verified 09/22/18 10:15 Home Medications: Ambulatory Orders Nitrofurantoin Monohyd/M-Cryst [Macrobid -] 100 mg PO BID #14 capsule 09/22/18 Anemia: Yes Asthma: No Cancer: No Cardiac Disorders: No CVA: No COPD: No CHF: No Dementia: No Diabetes: No GI Disorders: No Disorders: No HTN: Yes (gestational) Hypercholesterolemia: No Liver Disease: No Seizures: No Thyroid Disease: No - Surgical History Abdominal Surgery: No Appendectomy: No Cardiac Surgery: No Cholecystectomy: No Lung Surgery: No Neurologic Surgery: No Orthopedic Surgery: No - Suicide/Smoking/Psychosocial Hx Smoking History: Never smoked Have you smoked in the past 12 months: No If you are a former smoker, when did you quit?: 10 years ago Hx Alcohol Use: Yes Drug/Substance Use Hx: No Substance Use Type: Alcohol Hx Substance Use Treatment: No
[2019-01-04 04:39] VITALS: BMI 33.8
[2019-01-04] MEDS ORDERED: FAMOTIDINE 20 MG/50 ML IVPB 20 MG/50 ML MG IVPB ONE ×2 (04:46→04:57)
[2019-01-04] MEDS ORDERED: SODIUM CHLORIDE 1,000 ML IV STA (04:46)
[2019-01-04] MEDS ORDERED: ACETAMINOPHEN 1000 MG/100 ML VIAL (NON FORMULARY) IVPB ONE (04:46)
[2019-01-04] MEDS ORDERED: ACETAMINOPHEN INJECTION 100 ML IVPB ONE (04:56)
--- NOTE | 2019-01-04 05:05 | PDOC ---
Documentation entered by Ghislaine Torres SCRIBE, acting as scribe for Jada Umanzor DO. Jada Umanzor DO: This documentation has been prepared by the Brian mendoza Adrianna, SCRIBE, under my direction and personally reviewed by me in its entirety. I confirm that the documentation accurately reflects all work, treatment, procedures, and medical decision making performed by me. Attending Attestation - Resident Resident Name: Mandy Heller - ED Attending Attestation I have performed the following: I have examined & evaluated the patient, The case was reviewed & discussed with the resident, I agree w/resident's findings & plan - HPI HPI: The patient is a 28 year old female (), with a significant PMH of anemia, who presents to the ED for evaluation of abdominal cramping, nausea and vomiting x 1 prior to arrival Allergies: NKA, NKDA Surgical History: None reported Social History: Denies EtOH, tobacco, or illicit drug use 01/04/19 05:02 01/04/19 05:04 - Physicial Exam PE: Agree with resident exam. - Medical Decision Making 01/04/19 05:03 28 yo female with n/v and abd cramping no focal tenderness on exam plan for labs, ivf and re eval plan for CT if indicated based on exam and labs
[2019-01-04 05:40] LABS: BASO % 0.4 % (0-2.0); EOS % 1.3 % (0-4.5); HEMATOCRIT 34.4 % (32.4-45.2); HEMOGLOBIN 11.2 GM/dL (10.7-15.3); LYMPH % 21.4 % (8-40); MCH 25.6 pg (25.7-33.7); MCHC 32.5 g/dl (32.0-36.0); MEAN CELL VOLUME 78.9 fl (80-96); MEAN PLT VOLUME 9.5 fl (7.5-11.1); MONO % 5.9 % (3.8-10.2); PLATELET COUNT 258 K/MM3 (134-434); RBC 4.37 M/mm3 (3.60-5.2); RDW 14.3 % (11.6-15.6); WHITE BLOOD COUNT 8.6 K/mm3 (4.0-10.0)
[2019-01-04 05:45] LABS: ALBUMIN 3.4 g/dl (3.4-5.0); BILIRUBIN,TOTAL 0.2 mg/dL (0.2-1); CALCIUM 8.8 mg/dL (8.5-10.1); CREATININE 0.9 mg/dL (0.55-1.3); TOT PROT 7.1 g/dl (6.4-8.2)
[2019-01-04 05:54] LABS: URINE APPEARANCE CLEAR; URINE BILIRUBIN NEGATIVE (NEGATIVE); URINE COLOR YELLOW; URINE GLUCOSE (UA) NEGATIVE (NEGATIVE); URINE KETONE NEGATIVE (NEGATIVE); URINE LEUK ESTERASE NEGATIVE (NEGATIVE); URINE NITRITE NEGATIVE (NEGATIVE); URINE PROTEIN NEGATIVE (NEGATIVE)
[2019-01-04 06:21] VITALS: BP 125/74; PULSE 69; TEMP 97.5
== END 2019-01-04 07:04 | disposition home or self-care (01) ==
LOC: JER 04:09
PROC: 3E033NZ Introduction of Analgesics, Hypnotics, Sedatives into Peripheral Vein, Percutaneous Approach (ICD-10-PCS; principal; 2019-01-04)
PROC: 3E0337Z Introduction of Electrolytic and Water Balance Substance into Peripheral Vein, Percutaneous Approach (ICD-10-PCS; 2019-01-04)
PROC: 3E033GC Introduction of Other Therapeutic Substance into Peripheral Vein, Percutaneous Approach (ICD-10-PCS; 2019-01-04)
DX: R10.9 Unspecified abdominal pain (principal); R11.2 Nausea with vomiting, unspecified
CPT/HCPCS: 36415; 80053; 81003; 83690; 84703; 85025; 87086; 96361; 96365; 96375; 99284-25; J0131; J7030

== ENCOUNTER 2019-03-21 21:20 | Emergency (ER) | payer OTHER ==
[2019-03-21 21:45] VITALS: BMI 30.9
--- NOTE | 2019-03-21 22:54 | PDOC ---
History of Present Illness - General Chief Complaint: Diarrhea Stated Complaint: NAUSEA/DIARRHEA Time Seen by Provider: 03/21/19 22:54 History Source: Patient - History of Present Illness Initial Comments: 03/21/19 22:56 28 year old female with diarrhea since 5 am, + nausea, generalized abdominal pain. patient reports eating Popeyes last night before the symptoms started. denies fever/ chills, vomiting, dysuria, hematochezia PMHX: htn 03/21/19 22:59 Past History - Past Medical History Allergies/Adverse Reactions: Allergies Allergy/AdvReac Type Severity Reaction Status Date / Time No Known Drug Allergies Allergy Verified 01/04/19 04:39 Home Medications: Ambulatory Orders NK [No Known Home Medication] 01/04/19 Anemia: Yes Asthma: No Cancer: No Cardiac Disorders: No CVA: No COPD: No CHF: No Dementia: No Diabetes: No GI Disorders: No Disorders: No HTN: Yes (gestational) Hypercholesterolemia: No Liver Disease: No Seizures: No Thyroid Disease: No - Surgical History Abdominal Surgery: No Appendectomy: No Cardiac Surgery: No Cholecystectomy: No Lung Surgery: No Neurologic Surgery: No Orthopedic Surgery: No - Psycho Social/Smoking Cessation Hx Smoking History: Never smoked Have you smoked in the past 12 months: No If you are a former smoker, when did you quit?: 10 years ago Hx Alcohol Use: No Drug/Substance Use Hx: No Substance Use Type: Alcohol Hx Substance Use Treatment: No Abd/GI Specific PMHX - Complaint Specific PMHX Colitis: No Irritable Bowel Synd (IBS): No Pancreatitis: No GI Ulcer Disease: No Review of Systems - Review of Systems Able to Perform ROS?: Yes Is the patient limited Guyanese proficient: No Constitutional: No: Symptoms Reported, See HPI, Chills, Diaphoresis, Fever, Loss of Appetite, Malaise, Night Sweats, Weakness, Weight Stable, Unintentional Wgt. Loss, Unexplained wgt Loss, Other ABD/GI: Yes: Diarrhea, Nausea, Abdominal cramping *Physical Exam - Vital Signs Last Vital Signs Temp Pulse Resp BP Pulse Ox 97.8 F 77 20 126/66 100 03/21/19 21:41 03/21/19 21:41 03/21/19 21:41 03/21/19 21:41 03/21/19 21:41 - Physical Exam General Appearance: Yes: Appropriately Dressed Respiratory/Chest: positive: Lungs Clear, Normal Breath Sounds Gastrointestinal/Abdominal: positive: Normal Bowel Sounds, Soft. negative: Tender Musculoskeletal: positive: Normal Inspection Extremity: positive: Normal Capillary Refill, Normal Inspection, Normal Range of Motion Integumentary: positive: Normal Color, Dry, Warm Neurologic: positive: Fully Oriented, Alert ED Treatment Course - LABORATORY CBC & Chemistry Diagram: 03/21/19 23:18 03/21/19 23:18 ED Progress Note - Progress Note Progress Note: 03/21/19 23:01 A: gastroenteritis P: cbc cmp ua urine Discharge - Discharge Information Problems reviewed: Yes Clinical Impression/Diagnosis: Gastroenteritis Condition: Stable Disposition: HOME - Follow up/Referral Referrals: Stephanie Vanessa MD [Primary Care Provider] - - Patient Discharge Instructions Patient Printed Discharge Instructions: Viral Gastroenteritis Additional Instructions: So drink plenty of fluids start a BRAT ( bananas, rice apples toast) follow up with your doctor return to the ER if symptoms worsen - Post Discharge Activity Work/Back to School Note: Back to Work
--- NOTE | 2019-03-21 22:55 | PDOC ---
*Physical Exam - Vital Signs Last Vital Signs Temp Pulse Resp BP Pulse Ox 97.8 F 77 20 126/66 100 03/21/19 21:41 03/21/19 21:41 03/21/19 21:41 03/21/19 21:41 03/21/19 21:41 ED Treatment Course - LABORATORY CBC & Chemistry Diagram: 03/21/19 23:18 03/21/19 23:18 Medical Decision Making - Medical Decision Making 03/21/19 22:55 Patient seen by the advanced practice provider under my direct supervision. Ancillary testing reviewed as necessary. I agree with plan as outlined by the advanced practice provider. Discharge - Discharge Information Problems reviewed: Yes Clinical Impression/Diagnosis: Gastroenteritis - Follow up/Referral Referrals: Stephanie Vanessa MD [Primary Care Provider] - - Patient Discharge Instructions - Post Discharge Activity
[2019-03-21] MEDS ORDERED: ONDANSETRON 4 MG/2 ML VIAL IVPB ONE (23:02)
[2019-03-21] MEDS ORDERED: SODIUM CHLORIDE 1,000 ML IV STA (23:02)
[2019-03-21] MEDS ORDERED: ONDANSETRON 4 MG/2 ML VIAL ONE (23:11)
[2019-03-21 23:59] LABS: EPI CELLS 7.7 /HPF (0-5/HPF); HYALINE CASTS 2 /lpf (0-8); PH,URINE 5.5 (5.0-8.0); URINE APPEARANCE CLEAR; URINE BACTERIA 107.2 /hpf (NEGATIVE); URINE BILIRUBIN NEGATIVE (NEGATIVE); URINE COLOR YELLOW; URINE GLUCOSE (UA) NEGATIVE (NEGATIVE); URINE KETONE NEGATIVE (NEGATIVE); URINE LEUK ESTERASE NEGATIVE (NEGATIVE); URINE NITRITE NEGATIVE (NEGATIVE); URINE PROTEIN 1+ (NEGATIVE); URINE RBC 2 /hpf (0-4); URINE UROBILINOGEN 0.2 mg/dL (0.2-1.0); URINE WBC 1 /hpf (0-5)
[2019-03-22 00:04] LABS: BASO % 0.5 % (0-2.0); EOS % 1.3 % (0-4.5); HEMATOCRIT 38.1 % (32.4-45.2); HEMOGLOBIN 12.2 GM/dL (10.7-15.3); LYMPH % 17.2 % (8-40); MCH 25.6 pg (25.7-33.7); MCHC 32.1 g/dl (32.0-36.0); MEAN CELL VOLUME 79.7 fl (80-96); MEAN PLT VOLUME 9.7 fl (7.5-11.1); MONO % 6.8 % (3.8-10.2); NEUT % 74.2 % (42.8-82.8); PLATELET COUNT 281 K/MM3 (134-434); RBC 4.78 M/mm3 (3.60-5.2); RDW 14.2 % (11.6-15.6); WHITE BLOOD COUNT 7.6 K/mm3 (4.0-10.0)
[2019-03-22 00:21] LABS: ALBUMIN 3.8 g/dl (3.4-5.0); BILIRUBIN,TOTAL 0.2 mg/dL (0.2-1); BLOOD UREA NITROGEN 17.3 mg/dL (7-18); CALCIUM 8.7 mg/dL (8.5-10.1); POTASSIUM 4.2 mmol/L (3.5-5.1); TOT PROT 7.8 g/dl (6.4-8.2)
[2019-03-22 04:50] VITALS: BP 124/74; PULSE 78; TEMP 98
== END 2019-03-22 00:55 | disposition home or self-care (01) ==
LOC: JER 21:20
PROC: 3E033GC Introduction of Other Therapeutic Substance into Peripheral Vein, Percutaneous Approach (ICD-10-PCS; principal; 2019-03-21)
DX: K52.9 Noninfective gastroenteritis and colitis, unspecified (principal)
CPT/HCPCS: 36415; 80053; 81003; 84703; 85025; 96374; 99283-25; J7030

== ENCOUNTER 2019-03-31 06:48 | Emergency (ER) | payer OTHER ==
[2019-03-31 07:14] VITALS: BP 146/84; PULSE 68; TEMP 98.2; BMI 30.9
--- NOTE | 2019-03-31 07:23 | PDOC ---
History of Present Illness - General History Source: Patient Exam Limitations: Clinical Condition - History of Present Illness Initial Comments: 03/31/19 07:26 Patient with no significant past medical history present with complaint of pain and swelling to dorsal aspect of right hand and thenar muscle of right hand status post accidentally slamming metal corazon in her hand at home this morning. Patient reports swelling to back of right hand. Denies difficulty moving hand. Denies tingling numbing sensation. Denies previous injury to hand Occurred: reports: this morning <Randy Mckeon - Last Filed: 03/31/19 08:13> <Mamadou Jimenes - Last Filed: 03/31/19 12:53> - General Chief Complaint: Injury Stated Complaint: INJURY,SWELLING/RT HAND Time Seen by Provider: 03/31/19 07:15 Past History - Past Medical History Anemia: Yes Asthma: No Cancer: No Cardiac Disorders: No CVA: No COPD: No CHF: No Dementia: No Diabetes: No GI Disorders: No Disorders: No HTN: Yes (gestational) Hypercholesterolemia: No Liver Disease: No Seizures: No Thyroid Disease: No - Surgical History Abdominal Surgery: No Appendectomy: No Cardiac Surgery: No Cholecystectomy: No Lung Surgery: No Neurologic Surgery: No Orthopedic Surgery: No - Immunization History Immunization Up to Date: Yes - Psycho Social/Smoking Cessation Hx Smoking History: Never smoked Have you smoked in the past 12 months: No If you are a former smoker, when did you quit?: 10 years ago Information on smoking cessation initiated: No Hx Alcohol Use: No Drug/Substance Use Hx: No Substance Use Type: Alcohol Hx Substance Use Treatment: No <Randy Mckeon - Last Filed: 03/31/19 08:13> <Mamadou Jimenes - Last Filed: 03/31/19 12:53> - Past Medical History Allergies/Adverse Reactions: Allergies Allergy/AdvReac Type Severity Reaction Status Date / Time No Known Drug Allergies Allergy Verified 01/04/19 04:39 Home Medications: Ambulatory Orders Ibuprofen 800 mg PO Q8H PRN #20 tablet 03/31/19 Review of Systems - Review of Systems Able to Perform ROS?: Yes Is the patient limited [place] proficient: No Constitutional: No: Chills, Fever, Malaise HEENTM: No: Symptoms Reported Respiratory: No: Symptoms reported Cardiac (ROS): No: Symptoms Reported ABD/GI: No: Symptoms Reported Musculoskeletal: Yes: Symptoms Reported, See HPI, Joint Swelling (hand swelling) , Muscle Pain (pain to back of right hand). No: Muscle Weakness Integumentary: Yes: Symptoms Reported, See HPI, Other (swelling to back of right hand) Neurological: No: Symptoms reported, Numbness, Paresthesia, Tingling, Weakness All Other Systems: Reviewed and Negative <Randy Mckeon - Last Filed: 03/31/19 08:13> *Physical Exam - Vital Signs Last Vital Signs Temp Pulse Resp BP Pulse Ox 98.2 F 68 16 146/84 99 03/31/19 07:12 03/31/19 07:12 03/31/19 07:12 03/31/19 07:12 03/31/19 07:12 - Physical Exam Comments: 03/31/19 07:30 GENERAL: Well developed, well nourished. Awake and alert. No acute distress. PULMONARY: No evidence of respiratory distress. MUSCULOSKELETAL : moderate soft tissue swelling and tenderness over dorsal aspect of right hand over 2ng-4th metacarpals and thenar muscle of right hand. no ecchymosis or bruising. no visible deformity. no tenderness to fingers or wrist. FROM of hand and fingers SKIN: Warm and dry. Normal capillary refill. No bruising or ecchymosis NEUROLOGICAL: Alert, awake, appropriate. No motor deficits in the lower extremities. Gait is normal without ataxia. PSYCHIATRIC: Cooperative. Good eye contact. Appropriate mood and affect. General Appearance: Yes: Nourished, Appropriately Dressed. No: Apparent Distress HEENT: positive: Normal ENT Inspection Neck: positive: Supple Respiratory/Chest: positive: Lungs Clear, Normal Breath Sounds. negative: Respiratory Distress, Accessory Muscle Use Cardiovascular: positive: Regular Rhythm, Regular Rate Musculoskeletal: positive: Other (moderate tenderness to dorsal aspect of right hand with swelling to hand. no tenderness to wrist or fingers) Extremity: positive: Normal Capillary Refill, Normal Range of Motion, Tender ( moderate tenderness over dorsal aspect of right hand over 2nd-4th metacarpals. mild tenderness to thenar muscle of ight hand) Integumentary: positive: Normal Color, Swelling (moderate swelling to dorsal aspect of right hand). negative: Erythema, Ecchymosis Neurologic: positive: Fully Oriented, Alert, Normal Mood/Affect, Normal Response , Motor Strength 5/5 <Randy Mckeon - Last Filed: 03/31/19 08:13> - Vital Signs Last Vital Signs Temp Pulse Resp BP Pulse Ox 98.2 F 68 16 146/84 99 03/31/19 07:12 03/31/19 07:12 03/31/19 07:12 03/31/19 07:12 03/31/19 07:12 <Mamadou Jimenes - Last Filed: 03/31/19 12:53> Procedures - Splinting Splint Location: Right: Hand Pre-Proc Neuro Vasc Exam: normal Pre-Made Type: aircast Splint Type: Yes: Wrist (prefabricated wrist/hand splint) Post-Proc Neuro Vasc Exam: normal Jesús Bandage: yes, 3" Sling: No Complications: No Post splint xray: No Good repositioning: Yes <Randy Mckeon - Last Filed: 03/31/19 08:13> ED Treatment Course - RADIOLOGY Radiology Studies Ordered: Category Date Time Status HAND- RIGHT [RAD] Stat Radiology 03/31/19 07:15 Ordered <Randy Mckeon - Last Filed: 03/31/19 08:13> - Medications Given in the ED: ED Medications Discontinued Medications Generic Name Dose Route Start Last Admin Trade Name Sofya PRN Reason Stop Dose Admin Ibuprofen 800 mg 03/31/19 07:57 03/31/19 08:07 Motrin - PO 03/31/19 07:58 800 mg ONCE ONE Administration <Mamadou Jimenes - Last Filed: 03/31/19 12:53> Medical Decision Making - Medical Decision Making 03/31/19 07:27 Patient with no significant past medical history present with complaint of pain and swelling to dorsal aspect of right hand and thenar muscle of right hand status post accidentally slamming metal corazon in her hand at home this morning. Patient reports swelling to back of right hand. Denies difficulty moving hand. Denies tingling numbing sensation. Denies previous injury to hand Exam significant for moderate soft tissue swelling and tenderness over dorsal aspect of right hand over 2ng-4th metacarpals and thenar muscle of right hand. no ecchymosis or bruising. no visible deformity. no tenderness to fingers or wrist. FROM of hand and fingers. symptoms likely contusion vs fx x-ray of right hand ordered for r/o fx 03/31/19 07:56 X-ray of right hand and fingers shows no acute fracture dislocation. Patient symptoms likely contusion. Ibuprofen 800 mg p.o. ordered for pain. Right hand wrapped with Jesús bandage and put in prefabricated hand splint. Patient stable for discharge with advised to cold compress today and switch to hot compress tomorrow as needed for swelling and keep hand elevated with orthopedics follow- up as needed <Randy Mckeon - Last Filed: 03/31/19 08:13> - Medical Decision Making 03/31/19 12:53 I reviewed the case of the mid-level practitioner and was available for consultation while in the emergency department <Mamadou Jimenes - Last Filed: 03/31/19 12:53> Discharge - Discharge Information Problems reviewed: Yes - Admission No <Randy Mckeon - Last Filed: 03/31/19 08:13> <Mamadou Jimenes - Last Filed: 03/31/19 12:53> - Discharge Information Clinical Impression/Diagnosis: Localized swelling on right hand Contusion of hand, right Qualifiers: Encounter type: initial encounter Qualified Code(s): S60.221A - Contusion of right hand, initial encounter Condition: Stable Disposition: HOME - Additional Discharge Information Prescriptions: Ibuprofen 800 mg PO Q8H PRN #20 tablet PRN Reason: pain - Follow up/Referral Referrals: Pastor Machado MD [Staff Physician] - - Patient Discharge Instructions Patient Printed Discharge Instructions: DI for Contusion Additional Instructions: Right hand x-ray shows no acute fracture or dislocation. Symptoms likely from contusion. Apply cold compress today and switch to hot compress tomorrow 2-3 times a day as needed for swelling. Keep your hand elevated. Use provided Jesús bandage and hand splint for the next week to help with healing. Follow-up with referred orthopedics if no improvement in 4 days - Post Discharge Activity Work/Back to School Note: Back to Work
[2019-03-31] MEDS ORDERED: IBUPROFEN 400 MG TABLET (FP) PO ONE ×2 (07:57→08:00)
== END 2019-03-31 08:16 | disposition home or self-care (01) ==
LOC: JER 06:48
DX: S60.221A Contusion of right hand, initial encounter (principal); M79.89 Other specified soft tissue disorders; Z87.891 Personal history of nicotine dependence; W22.8XXA Striking against or struck by other objects, initial encounter; Y93.89 Activity, other specified; Y92.89 Other specified places as the place of occurrence of the external cause
CPT/HCPCS: 73130-TC-RT-FY; 99281-25

== ENCOUNTER 2022-09-05 19:46 | Emergency (ER) | payer BC, OTHER ==
[2022-09-05 19:52] VITALS: BP 121/71; PULSE 87; RESP 18; TEMP 98.4; BMI 34.7
[2022-09-05] MEDS ORDERED: FAMOTIDINE 20 MG/50 ML IVPB 20 MG/50 ML MG IVPB ONE ×2 (21:31→21:58)
[2022-09-05 22:26] LABS: BASO % 0.4 % (0-2.0); EOS % 0.8 % (0-4.5); HEMATOCRIT 37.8 % (32.4-45.2); HEMOGLOBIN 12.1 GM/dL (10.7-15.3); LYMPH % 17.5 % (8-40); MCH 23.8 pg (25.7-33.7); MCHC 32.1 g/dl (32.0-36.0); MEAN CELL VOLUME 74.1 fl (80-96); MEAN PLT VOLUME 8.5 fl (7.5-11.1); MONO % 7.1 % (3.8-10.2); NEUT % 74.2 % (42.8-82.8); PLATELET COUNT 317 10^3/uL (134-434); RDW 17.4 % (11.6-15.6); WHITE BLOOD COUNT 4.4 K/mm3 (4.0-10.0)
[2022-09-05 22:47] LABS: CALCIUM 8.3 mg/dL (8.5-10.1)
[2022-09-05 22:48] LABS: ALBUMIN 3.5 g/dl (3.4-5.0); BLOOD UREA NITROGEN 13.8 mg/dL (7-18)
[2022-09-05 22:52] LABS: BILIRUBIN,TOTAL 0.2 mg/dL (0.2-1)
== END 2022-09-05 23:26 | disposition home or self-care (01) ==
LOC: JER 19:46
PROC: 3E033GC Introduction of Other Therapeutic Substance into Peripheral Vein, Percutaneous Approach (ICD-10-PCS; principal; 2022-09-05)
DX: R11.2 Nausea with vomiting, unspecified (principal); R19.7 Diarrhea, unspecified; R10.12 Left upper quadrant pain; R50.9 Fever, unspecified
CPT/HCPCS: 36415; 80053; 82272; 85025; 99284-25

== ENCOUNTER 2023-08-01 20:42 | Emergency (ER) | payer BC ==
[2023-08-01 20:47] VITALS: BP 136/72; PULSE 80; RESP 18; TEMP 98.7; BMI 40.2
[2023-08-01] MEDS ORDERED: ACETAMINOPHEN/CAFFEINE/BUTALBITAL 1 TAB ONE (22:20)
[2023-08-01] MEDS: ACETAMINOPHEN/CAFFEINE/BUTALBITAL 1 TAB PO ONE (22:22)
== END 2023-08-01 23:35 | disposition home or self-care (01) ==
LOC: JER 20:42
DX: G44.209 Tension-type headache, unspecified, not intractable (principal)
CPT/HCPCS: 99283-25